=== PATIENT | male | born 1965 | race Caucasian/White ===

== ENCOUNTER 2021-10-25 08:18 | Inpatient (IN) ==
--- NOTE | 2021-09-30 11:42 | PAT Medication Instructions ---
Medication Instructions Date of Service September 30, 2021 Home Medications zyphlbq-wxsuvowsnpdgg-bjvywsot 250 mg-250 mg-65 mg tablet (Excedrin Migraine) 1 tab PO Q6H PRN Migraine Headache escitalopram oxalate 10 mg tablet (Lexapro) 20 mg PO QAM levothyroxine 137 mcg tablet 137 mcg PO QAM losartan 50 mg-hydrochlorothiazide 12.5 mg tablet 1 tab PO QAM rosuvastatin 20 mg tablet 20 mg PO QAM ASK your surgeon for instructions sqvoqxm-sdjmvmkskskpe-ifcuxhqj 250 mg-250 mg-65 mg tablet (Excedrin Migraine) 1 tab PO Q6H PRN Migraine Headache DO NOT take the morning of surgery losartan 50 mg-hydrochlorothiazide 12.5 mg tablet 1 tab PO QAM Take morning of surgery With a small sip of water, OTHERWISE NOTHING TO EAT OR DRINK AFTER MIDNIGHT: escitalopram oxalate 10 mg tablet (Lexapro) 20 mg PO QAM levothyroxine 137 mcg tablet 137 mcg PO QAM rosuvastatin 20 mg tablet 20 mg PO QAM Other Notes If you have any questions please call us at [phone] or [phone] or [phone] or [phone]
--- NOTE | 2021-10-04 11:12 | Anesthesiology Consultation ---
Date of Service October 04, 2021 Assessment & Plan (1) Encounter for pre-operative examination: - Patient acceptable risk for surgery pending surgeon-ordered cardiology preop evaluation (scheduled 10/16; [facility]). - COVID screening: Per assessment on 09/30: No known COVID-19 positive contacts or current COVID-19 related symptoms. Travel screen negative. Patient vaccinated. At surgeon discretion if preop Covid testing being done. - Possible difficult intubation: D/t anatomy and decreased cervical extension Chart Review Chart Review: Patient seen in Pre Admission Testing Teaching & Discussion Pre-Anesthesia Teaching/Discussion Notes: Instructed NPO after midnight before surgery,except medications with 15 cc of water. Medication instructions provided according to the PAT guidelines. History Surgery Operation Date: 10/25/21 07:45 Proposed Procedures p L4-L5 Decompression and Fusion, L5-S1 Hardware Removal, Spinal Cord Monitoring - Rohith Estevez, Height/Weight Height: 6 ft 2 in Weight: 120.2 kg Allergies Allergy/AdvReac Type Severity Reaction Status Date / Time No Known Allergies Allergy Verified 09/30/21 09:49 Medications Home Medications Medication Instructions Recorded Confirmed Last Taken vaewyqs-fsvzixsegnhvk-jnmkgkbs 250 1 tab PO Q6H PRN Migraine Headache 09/30/21 09/30/21 Unknown mg-250 mg-65 mg tablet (Excedrin Migraine) escitalopram oxalate 10 mg tablet 20 mg PO QAM 09/30/21 09/30/21 Unknown (Lexapro) levothyroxine 137 mcg tablet 137 mcg PO QAM 09/30/21 09/30/21 Unknown losartan 50 mg-hydrochlorothiazide 1 tab PO QAM 09/30/21 09/30/21 Unknown 12.5 mg tablet rosuvastatin 20 mg tablet 20 mg PO QAM 09/30/21 09/30/21 Unknown Past Medical History Medical History Anxiety Aortic stenosis Mild aortic stenosis (MG 17.0 mmhg) Depression History of COVID-19 01/2020 Hyperlipidemia Hypertension Hypothyroidism Migraine Severe sleep apnea Sleep study complete (plans for CPAP soon) Exercise / Class Metabolic Activity III < 4 Walking/Shop/Light housework (one FS (no CP, + SOB)) Past Family History Family History Other Adopted Past Surgical History Surgical History History of adenoidectomy History of appendectomy History of cholecystectomy History of colonoscopy History of esophagogastroduodenoscopy (EGD) History of lumbar fusion History of tonsillectomy History of tooth extraction Hx of surgical procedure laser spine procedure lumbar Past Anesthesia History No Hx of Anesthesia Complications and No Family Hx of Anesthesia Complications (Unknown- Adopted) History of PONV No Hx of PONV and Hx of Motion Sickness Social History Smoking Status: Never smoker Do You Dip or Chew Tobacco: No Hx Alcohol Use: No Hx Substance Use: No substance use type: does not use Review of Systems Patient denies chest pain, shortness of breath, fever, chills, cough, wheezing, palpitations. Physical Exam Vital Signs VITALS BP 130/79 P 60 TEMP 98.7 SP02 97%RA RESP 18 PHYSICAL Significantly decreased cervical extension range of motion. Full TMJ range of motion. TMD 4 finger breaths Mallampati Score 4 (small oral opening) Dentition: several missing including upper front Lungs: clear throughout to auscultation Cardiac: regular rate and rhythm, II-III/ systolic murmur Spine: normal Carotid arteries: negative bruit Extremities: no edema + adams- advised to trim Lab Results Anesthesia Preop Results Results Anesthesia Widget: WBC 6.00 K/ul (4.8-10.8) 10/04/21 Hgb 13.3 g/dl (14.0-18.0) L 10/04/21 Hct 39.9 % (40.1-51.0) L 10/04/21 Plt 216 K/uL (130-400) 10/04/21 Na 141 mmol/L (136-145) 10/04/21 K 3.7 mmol/L (3.5-5.1) 10/04/21 Cl 104 mmol/L (98-107) 10/04/21 CO2 31 mmol/L (21-32) 10/04/21 BUN 14 mg/dl (6-23) 10/04/21 Creat 0.81 mg/dl (0.6-1.4) 10/04/21 Glucose Level 68 mg/dl (70-99(Fasting)) L 10/04/21 PT 11.1 Seconds (9.0-12.0) 10/04/21 PTT 24.7 Seconds (21.0-31.0) 10/04/21 INR 1.0 (0.9-1.1) 10/04/21 Urine Color Yellow 10/04/21 Urine Appearance Clear (Clear) 10/04/21 Urine pH 5.5 (4.5-7.5) 10/04/21 Urine Specific [place] 1.017 (1.000-1.030) 10/04/21 Urine Protein Negative (Negative) 10/04/21 Urine Glucose (UA) Negative (Negative) 10/04/21 Urine Ketones Negative (Negative) 10/04/21 Urine Blood Negative (Negative) 10/04/21 Urine Nitrite Negative (Negative) 10/04/21 Urine Bilirubin Negative (Negative) 10/04/21 Urine Urobilinogen Negative (Negative) 10/04/21 Urine Leukocyte Esterase Negative (Negative) 10/04/21 Blood Type A Positive 10/04/21 Antibody Screen NEGATIVE 10/04/21 Testing Electrocardiogram Date: 06/07/21 SB at 46bpm. Possible lateral MO, probably old. Chest X-Ray Date: 10/04/21 Findings: + NAD Echocardiogram Date: 03/19/21 EF 60-65%. No regional motion abnormality. Mild LAD. Mildly calcified mitral valve annulus. Mild aortic stenosis (MG 17.0 mmhg). Stress Test Date: 06/07/21 Type: exercise Exercise stress EKG is not interpretable for ischemia as the patient only achieved 70% MPHR, the stress test had to be stopped on account of dyspnea. No chest pain reported. The patient, however has good functional status and exercised a maximum of 10 METS. Baseline artifact. There does not appear to be any significant STT segment changes. Infrequent PACs noted. Pulmonary Function Test Date: 06/01/21 Baseline spirometry normal. Patient was given increasing doses of methacholine with only 4% decrease in FVC and 9% decrease in FEV1. Negative methacholine challenge study. COVID-19 Risk Screen Screening Information COVID-19 Screen Date: 10/04/21 Exposure 21 Days Family/Household +COVID Last 21 Days: No Exposure 10 Days Any COVID Exposure Last 10 Days: No Symptoms Last 10 Days Experienced COVID Sx Last 10 Days: No + COVID 0-90 Days COVID + in Last 0-90 Days: No
[~2021-10-25 08:18] MED LIST: ACETAMINOPHEN 500 MG TAB PO SCH; ALBUMIN HUMAN 5% 12.5 GM/250 ML VIAL IV ONE; CeleBREX 200 MG CAP PO SCH; GABAPENTIN 600 MG DOSE PO SCH; LR 15ML/HR IV SCH; SUGAMMADEX SODIUM 200 MG/2 ML VIAL IV ONE
[2021-10-25] MEDS ORDERED: ONDANSETRON INJ 2 MG/ML 2 ML VIAL IV PRN ×2 (10:32→16:05)
[2021-10-25] MEDS ORDERED: HYDROmorphone INJ 2 MG/ML SYR/VIAL IV PRN (10:32)
[2021-10-25] MEDS ORDERED: ATROPINE SULFATE 0.1 MG/ML 10ML SYR IV PRN (10:32)
[2021-10-25] MEDS ORDERED: fentaNYL citrate 100 MCG/2 ML VIAL IV PRN (10:32)
[2021-10-25] MEDS ORDERED: ePHEDrine sulfate 50 MG/ML AMP IV PRN (10:32)
[2021-10-25] MEDS ORDERED: HYDROmorphone INJ 2 MG/ML SYR/VIAL ONE (10:33)
[2021-10-25] MEDS ORDERED: KETAMINE 50 MG/5 ML SYRINGE ONE (10:33)
[2021-10-25] MEDS ORDERED: MIDAZOLAM HCL 1 MG/ML 2ML VIAL ONE (10:33)
[2021-10-25] MEDS ORDERED: fentaNYL citrate 100 MCG/2 ML VIAL ONE (10:33)
[2021-10-25] MEDS ORDERED: LIDOCAINE 2% MPF LOCAL 5 ML VIAL INFIL ONE (10:34)
[2021-10-25] MEDS ORDERED: ONDANSETRON INJ 2 MG/ML 2 ML VIAL ONE (10:34)
[2021-10-25] MEDS ORDERED: PROPOFOL IV EMULSION 10 MG/ML 20 ML VIAL IV ONE (10:34)
[2021-10-25] MEDS ORDERED: DEXAMETHASONE SOD INJ 4 MG/ML VIAL ONE (10:34)
[2021-10-25] MEDS ORDERED: GLYCOPYRROLATE 0.2 MG/ML VIAL ONE (10:34)
[2021-10-25] MEDS ORDERED: ROCURONIUM BROMIDE 10 MG/ML 5 ML VIAL IV ONE ×2 (10:34→12:49)
--- NOTE | 2021-10-25 11:28 | History & Physical Bridge Note ---
Date of Service October 25, 2021 History & Physical Bridge Note I have examined the patient, reviewed the History & Physical and in the interval since the performance of the History & Physical I have noted the following changes of clinical significance: no changes noted
--- NOTE | 2021-10-25 11:29 | History & Physical Report ---
Date of Service October 25, 2021 Assessment & Plan (1) Neurogenic claudication due to lumbar spinal stenosis: Plan: L4-L5 decompression and fusion, L5-S1 hardware removal History of Present Illness Chief Complaint: Back and leg pain Primary Care Provider: German Aguirre MD This is a 56-year-old male who presents with marked kind status with consistent back and leg pain. I think since course of nonoperative care is here for surgical intervention. Allergies Allergy/AdvReac Type Severity Reaction Status Date / Time No Known Allergies Allergy Verified 10/25/21 09:14 Home Medications Medication Instructions Recorded Confirmed Type prxtymz-quvwirrqohoyv-rbqywuwt 250 1 tab PO Q6H PRN Migraine Headache 09/30/21 10/25/21 History mg-250 mg-65 mg tablet (Excedrin Migraine) escitalopram oxalate 10 mg tablet 20 mg PO QAM 09/30/21 10/25/21 History (Lexapro) levothyroxine 137 mcg tablet 137 mcg PO QAM 09/30/21 10/25/21 History losartan 50 mg-hydrochlorothiazide 1 tab PO QAM 09/30/21 10/25/21 History 12.5 mg tablet rosuvastatin 20 mg tablet 20 mg PO QAM 09/30/21 10/25/21 History Past Med/Surg History Medical History Anxiety Aortic stenosis Mild aortic stenosis (MG 17.0 mmhg) Depression History of COVID-19 01/2020 Hyperlipidemia Hypertension Hypothyroidism Migraine Severe sleep apnea Sleep study complete (plans for CPAP soon) Surgical History History of adenoidectomy History of appendectomy History of cholecystectomy History of colonoscopy History of esophagogastroduodenoscopy (EGD) History of lumbar fusion History of tonsillectomy History of tooth extraction Hx of surgical procedure laser spine procedure lumbar Family History Other Adopted Social History Smoking Status: Never smoker Second Hand Exposure: No; Do You Dip or Chew Tobacco: No; Tobacco Cessation Education Requested by Patient: No Hx Alcohol Use: No Hx Substance Use: No Preferred Language: Slovak Communication Ability: Effective Senior Abap Developer Required: No Beliefs That Will Affect Care: None Current Living Situation: Spouse Other Information That Helps Us Care for You: No Feels Safe at Home: Yes Safety Concerns: Feels Safe At This Time Assistive Devices: CPAP and Glasses Physical Exam Physical Exam: Patient is alert and oriented Heart regular rhythm Lungs clear Results & Data Results & Data ([facility]) Vital Signs (Past 12 Hours) Vital Signs Temp Pulse Resp BP Pulse Ox O2 Del Method 10/25/21 09:17 36.5 C 47 L 20 148/94 H 98 Room Air
[2021-10-25] MEDS ORDERED: BUPIVACAINE/EPINEPHRINE 0.25% 1:200,000 30 ML VIAL ONE (12:02)
[2021-10-25] MEDS ORDERED: ceFAZolin 330 MG/ML 1 GM VIAL ONE (12:02)
[2021-10-25] MEDS ORDERED: FLOSEAL HEMOSTATIC MATRIX 10ML TOP ONE (12:30)
[2021-10-25] MEDS ORDERED: PHENYLEPHRINE 100MCG/ML 5ML SYR ONE (12:51)
[2021-10-25] MEDS ORDERED: ePHEDrine sulfate 50 MG/ML SYR ONE (12:51)
--- NOTE | 2021-10-25 14:01 | Operative Report ---
Post Operative Report Pre & Post Diagnosis Operation Date: 10/25/21 10:25 Pre-Op Diagnosis: Spondylolisthesis Lumbar Region Post-Op Diagnosis: Spondylolisthesis Lumbar Region I identified the patient and participated in the time-out.: Yes Procedure Operation Date: 10/25/21 10:25 Actual Procedures #1 removal of posterior instrumentation L5-S1. #2 exploration of fusion L5-S1. #3 lumbar decompression bilateral medial facetectomies and foraminotomies L3-L4 L4-5 per #4 posterior spinal fusion L4-5. #5 placement posterior instrumentation L4-5. #6 interbody fusion L4-L5. #7 placement of Spira 14 x 26 mm cage at L4-5. #8 placement locally harvested morselized autograft in the posterior gutters. #9 placement I factor combined with V toss in the interbody space and posterior gutters. Surgeon Rohith Estevez DO Assistant Professor Of Communication None Estimated Blood Loss 250 Findings See Below Patient is 6 foot 2 weighing over 118 kg with a BMI of over 33. Patient's body habitus did contribute to significant technical difficulty requiring her deepest retractors longus instruments in order to perform his procedure. This at least 50% increased operative time. Specimens None Indications This is a 56-year-old male that presents with above-mentioned diagnosis after failed course of nonoperative care is here for the above-mentioned procedure. Description of Procedure Patient was met with identified informed consent obtained. Patient was then taken to the operative suite underwent a patient placed in a prone position on the [place] table top Tobias frame. All bony prominences well-padded eyes inspected to ensure no external pressure placed upon the. This point lumbar spine was prepped and draped in normal sterile fashion. Sharp dissection with the assistance pericardial was performed down to and exposing the lamina and transverse processes of L4 and instrumentation L5-S1 bilaterally. I then proceeded move the hardware bilaterally explore the fusion mass noting it to be mature and intact. Then performed a complete laminectomy of L4 partial laminectomy of L3 including bilateral medial facetectomies and foraminotomies addressing severe spinal stenosis. Obvious facet hypertrophy consistent with instability was identified. After complete decompression pedicle screws were placed in L4-L5 bilaterally with assistance of fluoroscopy and the properly sized lopez placed. By way of a transit foraminal approach on the left complete discectomy of L4-L5 was performed endplates curetted to subcortical bleeding bone and a 14 x 26 mm spiral cage with I factor tapped in position. The rods were then compressed locked into final position bilaterally. The transverse processes of L for L5 burred to subcortical bleeding bone. I factor combined with V toss and locally harvested morselized autograft was placed in the posterior gutters. 15 round TANIKA drain inserted. Incision was closed with 1 Vicryl the fascia 2-0 Vicryl subcutaneously and 4 Monocryl for final skin closure. Steri-Strip sterile dressings placed. Patient waken taken PACU stable condition. Please note spinal cord monitoring was utilized at the procedure no changes noted. I attest to the content of the Intraoperative Record and any orders documented therein. Any exceptions are noted below.
--- NOTE | 2021-10-25 14:08 | Fluoroscopy Report ---
FL lumbar spine 2-3V HISTORY: 56 years-old Male L4-5 DFI L5-S1 REMOVE HARDWARE COMPARISON: None TECHNIQUE: 2 spot fluoroscopic images of the lumbar spine were obtained utilizing 16.8 seconds fluoro scopy time FINDINGS: Discectomy at L4-L5 and L5-S1 with L4-L5 posterior interbody lopez and screw fusion. There appears to b e grade 1 anterolisthesis L4 on L5. No unexpected opaque foreign bodies identified. IMPRESSION: Fluoroscopic assistance as above. ACT 112: Negative or not required by law. The above report was generated using voice recognition software. It may contain grammatical, syntax o r spelling errors. Electronically signed by: Travis Hernandez M.D. 10/25/2021 2:07 PM
--- NOTE | 2021-10-25 15:44 | Anesthesiology Progress Note ---
Date of Service October 25, 2021 Anesthesia Post Procedure Vital Signs Vital Signs: Temp Pulse Pulse Resp BP Pulse Ox O2 Del Method 10/25/21 15:20 98.8 F 77 11 L 102/75 95 Oxymask 10/25/21 15:30 98.8 F 77 8 L 122/62 95 Nasal Cannula 10/25/21 15:10 98.8 F 89 10 L 117/70 97 Oxymask 10/25/21 15:00 78 10 L 98/78 L 96 Oxymask 10/25/21 14:50 75 10 L 115/84 95 Oxymask 10/25/21 14:40 77 10 L 113/95 95 Oxymask 10/25/21 14:30 73 10 L 102/72 93 Oxymask 10/25/21 14:20 71 12 118/77 95 Oxymask 10/25/21 14:10 98.6 F 68 16 120/68 94 Oxymask 10/25/21 09:17 97.7 F 47 L 20 148/94 H 98 Room Air O2 Flow Rate 10/25/21 15:20 3 10/25/21 15:30 2 10/25/21 15:10 5 10/25/21 15:00 9 10/25/21 14:50 9 10/25/21 14:40 9 10/25/21 14:30 9 10/25/21 14:20 9 10/25/21 14:10 9 10/25/21 09:17 Transfer of Care Handoff Completed per policy Notes Mental Status: alert / awake / arousable and participated in evaluation Patient Amnestic to Procedure: Yes Nausea / Vomiting: adequately controlled Pain: adequately controlled Airway Patency, RR, SpO2: stable & adequate BP & HR: stable & adequate Hydration State: stable & adequate Anesthetic Complications: no major complications apparent and Pt Satisfied with anesthetic care
[2021-10-25] MEDS ORDERED: diphenhydrAMINE Capsule 25 MG CAP PO PRN (16:05)
[2021-10-25] MEDS ORDERED: ACETAMINOPHEN 500 MG TAB PO PRN (16:05)
[2021-10-25] MEDS ORDERED: METOCLOPRAMIDE HCL INJ 5 MG/ML 2 ML VIAL IV PRN (16:05)
[2021-10-25] MEDS ORDERED: NON-FORMULARY MEDICATION (Aspirin-Acetaminophen-Caffeine [Excedrin Migraine] 250-250-65 mg PO PRN (16:05)
[2021-10-25] MEDS ORDERED: ACETAMINOPHEN 1,000 MG/100 ML VIAL IV PRN (16:05)
[2021-10-25] MEDS ORDERED: FAMOTIDINE 20 MG TAB PO PRN (16:05)
[2021-10-25] MEDS ORDERED: NALOXONE HCL 0.4 MG/1 ML VIAL/CARP IV PRN (16:05)
[2021-10-25] MEDS ORDERED: PROMETHAZINE HCL 12.5 MG in SODIUM CHLORIDE 0.9% 50 ML IV PRN (16:05)
[2021-10-25] MEDS ORDERED: bisacodyL 10 MG SUPP PR PRN (16:05)
[2021-10-25] MEDS ORDERED: LORazepam 0.5 MG TAB PO PRN (16:05)
[2021-10-25] MEDS ORDERED: SOD PHOSPHATE/SOD BIPHOSPHATE ENEMA 132 ML BTL PR PRN (16:05)
[2021-10-25] MEDS ORDERED: ALUMINUM/MAGNESIUM SUSP 30 ML UDC PO PRN (16:05)
[2021-10-25] MEDS ORDERED: HYDROmorphone INJ 0.5 MG/0.5 ML SYR IV PRN (16:05)
[2021-10-25] MEDS ORDERED: HYDROmorphone INJ 1 MG/ML SYRINGE IV PRN (16:05)
[2021-10-25] MEDS ORDERED: hydrOXYzine HCl 25 MG TAB PO PRN (16:05)
[2021-10-25] MEDS ORDERED: MAGNESIUM HYDROXIDE SUSP 30 ML UDC PO PRN (16:05)
[2021-10-25] MEDS ORDERED: ONDANSETRON 4 MG OD TAB PO PRN (16:05)
[2021-10-25] MEDS ORDERED: LORazepam 0.5 MG in SYRINGE 0.25 ML IV PRN (16:05)
--- NOTE | 2021-10-25 16:57 | Consultation ---
Date of Consultation October 25, 2021 Assessment & Plan (1) Neurogenic claudication due to lumbar spinal stenosis: (2) HTN (hypertension): (3) HLD (hyperlipidemia): (4) Hypothyroidism: (5) KIRBY (obstructive sleep apnea): (6) Aortic stenosis: Plan 56 y/o that underwent L4-L5 and L5-S1 with L4-L5 posterior interbody lopez and screw fusion performed by Dr. Estevez today after failed conservative management from back and leg pain. [facility] Hospitalist consulted for medical management. Neurogenic claudication d/t lumbar spinal stenosis: Discectomy at L4-L5 and L5-S1 with L4-L5 posterior interbody lopez and screw fusion performed by Dr. Estevez POD: #0 No Hgb in EMR system for review/baseline; Monitor H/H EBL: 250mL; ; TANIKA drain in place. Orthosx to manage pain control, wound care, anticoagulation and activities ISB post op PT/OT when appropriate; neurovascular checks per protocol AM labs; CBC/BMP HTN: Stable post op; continue losartan/HCTZ HLD: Stable; continue rosuvastatin Hypothyroidism: Stable; continue Synthroid Anxiety/Depression: Stable; continue Lexapro KIRBY: Stable; does not wear CPAP at home but is in process of obtaining one Aortic Stenosis: Mild; follows with in [place]; no previous records available. Disposition: PCP: Dr. Aguirre VTE Prophylaxis: SCD/TEDS Code Status: Full Code Contact: Kaci, : [phone] I personally was able to review all current laboratory work and diagnostic images obtained during this hospital stay. Additionally, I was able to review the patients past medication reconciliation and history with direct visualization in the patients chart. Patient seen in collaboration with Dr. Basilio. Supervising Physician Co-Signing Physician Notes Patient was seen and examined independently at bedside. Chart reviewed. Case discussed with Shae MOORE and agree with the documentation above with regards to HPI, physical exam and A/P except as noted below. In summary, this is a 56 year old male with spondylolisthesis lumbar region who underwent elective back surgery today by Dr Estevez. Seen and examined at bedside. at bedside. patient is AAO, sitting in bed, eating dinner, on NC. Chest clear, heart sounds normal, TANIKA drain with serosang output, abd benign, no edema. Complains of 7/10 lower back pain. No N/V/SOB. Diet, DVT ppx, pain medication and activities per primary team. Chronic medical conditions stable. Repeat labs in am. Rest as per the note above. History of Present Illness Requesting Physician: Dr. Estevez Reason for Consultation: Medical Management Attending Physician: Rohith Estevez DO History of Present Illness 56 y/o that underwent L4-L5 and L5-S1 with L4-L5 posterior interbody lopez and screw fusion performed by Dr. Estevez today after failed conservative management. Additional PMH includes: mild aortic stenosis, HTN, HLD, hypothyroidism, KIRBY, migraines, and anxiety. [facility] Hospitalist consulted for medical management. Please see A/P for further details. Allergies Allergy/AdvReac Type Severity Reaction Status Date / Time No Known Allergies Allergy Verified 10/25/21 09:14 Home Medications Medication Instructions Recorded Confirmed Type nyhmgjq-jvgizqtwltwwy-fhaanrop 250 1 tab PO Q6H PRN Migraine Headache 09/30/21 10/25/21 History mg-250 mg-65 mg tablet (Excedrin Migraine) escitalopram oxalate 10 mg tablet 20 mg PO QAM 09/30/21 10/25/21 History (Lexapro) levothyroxine 137 mcg tablet 137 mcg PO QAM 09/30/21 10/25/21 History losartan 50 mg-hydrochlorothiazide 1 tab PO QAM 09/30/21 10/25/21 History 12.5 mg tablet rosuvastatin 20 mg tablet 20 mg PO QAM 09/30/21 10/25/21 History Patient History Medical History (Updated 10/25/21 @ 16:45 by TRAVIS Le) Anxiety Aortic stenosis Mild aortic stenosis (MG 17.0 mmhg) Aortic stenosis Depression History of COVID-19 01/2020 HLD (hyperlipidemia) HTN (hypertension) Hyperlipidemia Hypertension Hypothyroidism Hypothyroidism Migraine KIRBY (obstructive sleep apnea) Severe sleep apnea Sleep study complete (plans for CPAP soon) Surgical History History of adenoidectomy History of appendectomy History of cholecystectomy History of colonoscopy History of esophagogastroduodenoscopy (EGD) History of lumbar fusion History of tonsillectomy History of tooth extraction Hx of surgical procedure laser spine procedure lumbar Family History Other Adopted Social History Smoking Status: Never smoker Second Hand Exposure: No; Do You Dip or Chew Tobacco: No; Tobacco Cessation Education Requested by Patient: No Hx Alcohol Use: No Hx Substance Use: No Preferred Language: Albanian Communication Ability: Effective Help Desk Specialist Required: No Beliefs That Will Affect Care: None Current Living Situation: Spouse Other Information That Helps Us Care for You: No Feels Safe at Home: Yes Safety Concerns: Feels Safe At This Time Assistive Devices: CPAP and Glasses Review of Systems Review of Systems: Neuro: (-) Falls, trauma, slurred speech HEENT: (-) ROSARIO, dizziness, dysphagia, visual or auditory changes CV: (-) CP, palpitations, swelling Resp: (-) SOB GI: (-) appetite changes, N/V/D, bowel changes : (-) urinary changes Skin: (-) rashes Psych: (-) anxiety, depression Physical Exam Physical Exam: Neuro: AAOx4, PERRLA, no aphagia, memory changes, CNII-XII grossly intact HEENT: head normocephalic, moist mucus membranes CV: S1/S2, (-) M/G/R, (-) edema, cap refill < 3 seconds Resp: Lungs CTA in all rivers. On RA GI: Abdomen S/NT/ND, Ax4 bowel sounds, (-) CVA tenderness Musculoskeletal: 5/5 B/L UE strength, 5/5 B/L LE strength. No gait disturbance Skin: (-) rashes , (-) erythema. Psych: euthymic mood Results & Data ([facility]) Vital Signs (Past 12 Hours) Vital Signs Temp Pulse Pulse Resp BP Pulse Ox O2 Del Method 10/25/21 16:12 Nasal Cannula 10/25/21 16:07 37.1 C 74 12 113/62 95 Nasal Cannula 10/25/21 15:20 37.1 C 77 11 L 102/75 95 Oxymask 10/25/21 15:50 37.1 C 79 11 L 128/62 95 Nasal Cannula 10/25/21 15:40 37.1 C 73 10 L 115/62 93 Nasal Cannula 10/25/21 15:30 37.1 C 77 8 L 122/62 95 Nasal Cannula 10/25/21 15:10 37.1 C 89 10 L 117/70 97 Oxymask 10/25/21 15:00 78 10 L 98/78 L 96 Oxymask 10/25/21 14:50 75 10 L 115/84 95 Oxymask 10/25/21 14:40 77 10 L 113/95 95 Oxymask 10/25/21 14:30 73 10 L 102/72 93 Oxymask 10/25/21 14:20 71 12 118/77 95 Oxymask 10/25/21 14:10 37.0 C 68 16 120/68 94 Oxymask 10/25/21 09:17 36.5 C 47 L 20 148/94 H 98 Room Air O2 Flow Rate 10/25/21 16:12 3 10/25/21 16:07 3 10/25/21 15:20 3 10/25/21 15:50 3 10/25/21 15:40 3 10/25/21 15:30 2 10/25/21 15:10 5 10/25/21 15:00 9 10/25/21 14:50 9 10/25/21 14:40 9 10/25/21 14:30 9 10/25/21 14:20 9 10/25/21 14:10 9 10/25/21 09:17 Diagnostic Findings Lumbar Spine X-Ray 10/25/21 10:25 [place] lumbar spine 2-3V HISTORY: 56 years-old Male L4-5 DFI L5-S1 REMOVE HARDWARE COMPARISON: None TECHNIQUE: 2 spot fluoroscopic images of the lumbar spine were obtained utilizing 16.8 seconds fluoroscopy time FINDINGS: Discectomy at L4-L5 and L5-S1 with L4-L5 posterior interbody lopez and screw fusion. There appears to be grade 1 anterolisthesis L4 on L5. No unexpected opaque foreign bodies identified. IMPRESSION: Fluoroscopic assistance as above. ACT 112: Negative or not required by law. The above report was generated using voice recognition software. It may contain grammatical, syntax or spelling errors. Electronically signed by: Travis Hernandez M.D. 10/25/2021 2:07 PM
[2021-10-25] MEDS: LACTATED RINGER'S 1,000 ML IV SCH ×2 (16:58→23:30)
[2021-10-25] MEDS: oxyCODONE HCL IR 5 MG TAB (IMMEDIATE RELEASE) PO PRN ×2 (17:52→23:18)
[2021-10-25] MEDS: ceFAZolin 2000MG 2,000 MG/15 ML SYR IV SCH (20:18)
[2021-10-25] MEDS: DOCUSATE SODIUM/SENNA 50/8.6MG TAB PO SCH (20:19)
[2021-10-25] MEDS: traMADol HCL 50 MG TABLET PO PRN (20:21)
[2021-10-26] MEDS: ceFAZolin 2000MG 2,000 MG/15 ML SYR IV SCH (04:36)
[2021-10-26] MEDS: POLYETHYLENE (MIRALAX) 17 GM PACK PO SCH ×4 (06:07→22:28)
[2021-10-26] MEDS: LEVOTHYROXINE SODIUM 137 MCG TABLET PO SCH (06:07)
[2021-10-26] MEDS: LACTATED RINGER'S 1,000 ML IV SCH (06:12)
[2021-10-26 06:56] LABS: BUN Creatinine Ratio 15.9 (10-20); Calcium 8.9 mg/dl (8.5-10.1); Creatinine Clr Calc Pharmacy 126.9 ml/min; Est GFR (African American) 110.5 ml/min; Est GFR (Non-African American) 95.4 ml/min; Potassium 4.3 mmol/L (3.5-5.1)
[2021-10-26] MEDS: traMADol HCL 50 MG TABLET PO PRN (07:18)
[2021-10-26] MEDS: ESCITALOPRAM OXALATE 20 MG TAB PO SCH (08:21)
[2021-10-26] MEDS: ROSUVASTATIN CALCIUM 20 MG TAB PO SCH (08:21)
[2021-10-26] MEDS: LOSARTAN/HCTZ 50/12.5MG TAB PO SCH (08:21)
[2021-10-26] MEDS: dexAMETHasone 6 MG in SYRINGE 0 ML IV SCH (08:22)
--- NOTE | 2021-10-26 08:30 | Orthopedic Progress Note ---
Date of Service October 26, 2021 Assessment & Plan (1) Neurogenic claudication due to lumbar spinal stenosis: Plan: Patient is postoperative day 1 status post hard removal L5-S1, decompression and fusion L4-5. He is doing well. He will start physical therapy today. DVT prophylaxis in the form of teds and SCDs. Continue with bowel regimen. Maintain TANIKA drain. Reinforce dressing. Anticipate discharge home within the next 24 to 48 hours. Admission and Anticipated Discharge Date Admission Date: October 25, 2021 Subjective Mr. Garvey is postoperative day 1 status post hardware removal L5-S1, decompression instrumented fusion L4-5. He is doing well. He had an uneventful evening. TANIKA drain output last shift was 80 cc. H&H not performed this morning. Lower extremity pain is greatly improved. Overall doing well. Review of Systems Review of Systems: All systems reviewed & are unremarkable except as noted in HPI & below Physical Exam Physical Exam: Sitting on the edge of the bed in no acute distress Alert and oriented x3 Lumbar dressing is bloodsoaked but has functioning TANIKA drain Strength is intact bilateral lower extremities Calf soft nontender bilaterally Results & Data ([facility]) Vital Signs (Past 12 Hours) Vital Signs Temp Pulse Pulse Resp BP Pulse Ox O2 Del Method 10/26/21 07:10 Room Air 10/26/21 07:09 36.5 C 65 16 117/67 96 Room Air 10/26/21 03:00 36.5 C 67 16 128/72 96 Room Air 10/25/21 23:12 36.6 C 80 16 118/69 96
[2021-10-26 08:47] LABS: Basophils # (auto) 0.01 K/uL (0-0.2); Basophils % (auto) 0.1 %; Hematocrit (blood only) 36.4 % (40.1-51.0); Hemoglobin 12.2 g/dl (14.0-18.0); Immature Granulocytes # (auto) 0.06 K/uL (0.00-0.02); Immature Granulocytes % (auto) 0.4 %; Lymphocytes # (auto) 1.08 K/uL (1.2-3.4); Lymphocytes % (auto) 7.8 %; Mean Corpuscular Hemoglobin 29.3 pg (25.0-34.0); Mean Corpuscular Hgb Conc 33.5 g/dL (32.0-36.0); Mean Corpuscular Volume 87.3 fL (80.0-100.0); Mean Platelet Volume 10.6 fL (9.4-12.4); Monocytes # (auto) 0.68 K/uL (0.24-0.82); Monocytes % (auto) 4.9 %; Neutrophils # (auto) 12.04 K/uL (1.4-6.5); Neutrophils % (auto) 86.8 %; Platelet Count 258 K/uL (130-400); RDW Coefficient of Variation 12.6 % (11.5-14.5); RDW Standard Deviation 39.8 fL (36.4-46.3); Red Blood Count 4.17 M/uL (4.63-6.08); White Blood Count 13.87 K/ul (4.8-10.8)
[2021-10-26] MEDS ORDERED: COUGH DROP (SUGAR FREE) LOZ 24 LOZ/1 BOX BUCCAL ONE (09:39)
[2021-10-26] MEDS: oxyCODONE HCL IR 5 MG TAB (IMMEDIATE RELEASE) PO PRN (12:08)
--- NOTE | 2021-10-26 14:24 | Hospitalist Progress Note ---
Date of Service October 26, 2021 Assessment & Plan (1) Neurogenic claudication due to lumbar spinal stenosis: (2) HTN (hypertension): (3) HLD (hyperlipidemia): (4) Hypothyroidism: (5) KIRBY (obstructive sleep apnea): (6) Aortic stenosis: Plan 56 y/o that underwent L4-L5 and L5-S1 with L4-L5 posterior interbody lopez and screw fusion performed by Dr. Estevez today after failed conservative management from back and leg pain. [facility] Hospitalist consulted for medical management. Neurogenic claudication d/t lumbar spinal stenosis: Discectomy at L4-L5 and L5-S1 with L4-L5 posterior interbody lopez and screw fusion performed by Dr. Estevez POD: #1 hgb 12.2 - ~80cc from TANIKA drain EBL: 250mL; ; TANIKA drain in place. Orthosx to manage pain control, wound care, anticoagulation and activities ISB post op PT/OT when appropriate; neurovascular checks per protocol HTN: Stable post op; continue losartan/HCTZ HLD: Stable; continue rosuvastatin Hypothyroidism: Stable; continue Synthroid Anxiety/Depression: Stable; continue Lexapro KIRBY: Stable; does not wear CPAP at home but is in process of obtaining one Aortic Stenosis: Mild; follows with in [place]; no previous records available. Disposition: PCP: Dr. Aguirre VTE Prophylaxis: SCD/TEDS Code Status: Full Code Contact: Kaci, : [phone] Admission and Anticipated Discharge Date Admission Date: October 25, 2021 Subjective Mr. Garvey is postoperative day 1 status post hardware removal L5-S1, decompression instrumented fusion L4-5. He is doing well, feels very good, pain is about 4/10. TAINKA drain output last shift was 80 cc. Lower extremity pain is greatly improved. Overall doing well. Review of Systems Review of Systems: All systems reviewed & are unremarkable except as noted in Subjective Physical Exam Physical Exam: Neuro: AAOx4, PERRLA, no aphagia, memory changes, CNII-XII grossly intact HEENT: head normocephalic, moist mucus membranes CV: S1/S2, (-) M/G/R, (-) edema, cap refill < 3 seconds Resp: Lungs CTA in all rivers. On RA GI: Abdomen S/NT/ND, Ax4 bowel sounds, (-) CVA tenderness Musculoskeletal: 5/5 B/L UE strength, 5/5 B/L LE strength. No gait disturbance Skin: (-) rashes , (-) erythema. Psych: euthymic mood Results & Data Results & Data ([facility]) Vital Signs (Past 12 Hours) Vital Signs Temp Pulse Pulse Resp BP Pulse Ox O2 Del Method 10/26/21 12:59 97 10/26/21 11:31 36.1 C L 64 18 120/68 94 Room Air 10/26/21 07:10 Room Air 10/26/21 07:09 36.5 C 65 16 117/67 96 Room Air 10/26/21 03:00 36.5 C 67 16 128/72 96 Room Air Laboratory Results Short CBC 10/26/21 10/26/21 Range/Units 05:12 08:07 WBC Cancelled 13.87 H Hgb Cancelled 12.2 L Hct Cancelled 36.4 L Plt Count Cancelled 258 BMP 10/26/21 05:12 Sodium 138 Potassium 4.3 Chloride 102 Carbon Dioxide 29 BUN 14 Creatinine 0.88 Glucose 111 H Calcium 8.9 Medications Administered Current Inpatient Medications Acetaminophen (Acetaminophen 500 Mg Tab) 1,000 mg PO Q8H PRN PRN Reason: MILD Pain Scale 1,2,3 & Pre PT Stop: 11/24/21 16:04 Al Hydrox/Mg Hydrox/Simethicone (Aluminum/Magnesium Susp 30 Ml Udc) 30 ml PO Q6H PRN PRN Reason: Dyspepsia Stop: 11/24/21 16:04 Bisacodyl (Bisacodyl 10 Mg Supp) 10 mg NJ DAILY PRN PRN Reason: Constipation Stop: 11/24/21 16:04 Diphenhydramine HCl (Diphenhydramine Capsule 25 Mg Cap) 25 mg PO Q6H PRN PRN Reason: Allergic Rhinitis/Insomnia Stop: 11/24/21 16:04 Escitalopram Oxalate (Escitalopram Oxalate 20 Mg Tab) 20 mg PO QAM ILANA Stop: 11/25/21 08:59 Last Admin: 10/26/21 08:21 Dose: 20 mg Famotidine (Famotidine 20 Mg Tab) 20 mg PO Q12H PRN PRN Reason: Dyspepsia Stop: 11/24/21 16:04 HCTZ/Losartan Potassium (Losartan/Hctz 50/12.5mg Tab) 1 tab PO QAM ILANA Stop: 11/25/21 08:59 Last Admin: 10/26/21 08:21 Dose: 1 tab Hydromorphone HCl (Hydromorphone Inj 0.5 Mg/0.5 Ml Syr) 0.5 mg IV Q3H PRN PRN Reason: MODERATE Pain (Scale 4,5,6) & Pre PT Stop: 11/08/21 16:04 Hydromorphone HCl (Hydromorphone Inj 1 Mg/Ml Syringe) 1 mg IV Q3H PRN PRN Reason: SEVERE Pain (Scale 7,8,9,10) Stop: 11/08/21 16:04 Hydroxyzine HCl (Hydroxyzine Hcl 25 Mg Tab) 25 mg PO Q8H PRN PRN Reason: Anxiety Stop: 11/24/21 16:04 Promethazine HCl 12.5 mg/ (Sodium Chloride) 50.5 mls @ 202 mls/hr IV Q6H PRN PRN Reason: Nausea &/or Vomiting Stop: 11/24/21 16:04 Acetaminophen (Ofirmev) 1,000 mg in 100 mls @ 400 mls/hr IV Q8H PRN PRN Reason: Pain Rating 1-3 & Pre PT Stop: 10/26/21 16:06 Lorazepam 0.5 mg/ Syringe 0.5 mls @ 2 mls/min IV Q8H PRN PRN Reason: Sedation/Anxiety Stop: 11/24/21 16:04 Dexamethasone 6 mg/ Syringe 1.5 mls @ 1 mls/min IV DAILY ILANA Stop: 10/28/21 09:02 Last Admin: 10/26/21 08:22 Dose: 1 mls/min Levothyroxine Sodium (Levothyroxine Sodium 137 Mcg Tablet) 137 mcg PO DAILYBB [facility] Stop: 11/25/21 06:29 Last Admin: 10/26/21 06:07 Dose: 137 mcg Lorazepam (Lorazepam 0.5 Mg Tab) 0.5 mg PO Q8H PRN PRN Reason: Sedation/Anxiety Stop: 11/24/21 16:04 Magnesium Hydroxide (Magnesium Hydroxide Susp 30 Ml Udc) 30 ml PO Q24H PRN PRN Reason: Constipation Stop: 11/24/21 16:04 Metoclopramide HCl (Metoclopramide Hcl Inj 5 Mg/Ml 2 Ml Vial) 10 mg IV Q6H PRN PRN Reason: Nausea &/or Vomiting Stop: 11/24/21 16:04 Naloxone HCl (Naloxone Hcl 0.4 Mg/1 Ml Vial/Carp) 0.1 mg IV Q5M PRN PRN Reason: Oversedation/Resp depression Stop: 11/24/21 16:04 Ondansetron HCl (Ondansetron Inj 2 Mg/Ml 2 Ml Vial) 4 mg IV Q6H PRN PRN Reason: Nausea &/or Vomiting Stop: 11/24/21 16:04 Ondansetron HCl (Ondansetron 4 Mg Od Tab) 4 mg PO Q6H PRN PRN Reason: Nausea Stop: 11/24/21 16:04 Oxycodone HCl (Oxycodone Hcl Ir 5 Mg Tab (Immediate Release)) 5 - 10 mg PO Q4H PRN PRN Reason: Pain & Pre PT Stop: 11/08/21 16:04 Last Admin: 10/26/21 12:08 Dose: 5 mg Polyethylene Glycol (Polyethylene (Miralax) 17 Gm Pack) 17 gm PO Q6 ILANA Stop: 11/25/21 05:59 Last Admin: 10/26/21 12:05 Dose: 17 gm Rosuvastatin Calcium (Rosuvastatin Calcium 20 Mg Tab) 20 mg PO QAM ILANA Stop: 11/25/21 08:59 Last Admin: 10/26/21 08:21 Dose: 20 mg Senna/Docusate Sodium (Docusate Sodium/Senna 50/8.6mg Tab) 2 tab PO HS ILANA Stop: 11/24/21 20:59 Last Admin: 10/25/21 20:19 Dose: 2 tab Sodium Biphosphate/Sodium Phosphate (Sod Phosphate/Sod Biphosphate Enema 132 Ml Btl) 132 ml NJ ONE PRN PRN Reason: Constipation Stop: 11/24/21 16:04 Tramadol HCl (Tramadol Hcl 50 Mg Tablet) 50 - 100 mg PO Q4H PRN PRN Reason: Moderate-Severe pain & Pre PT Stop: 11/24/21 16:04 Last Admin: 10/26/21 07:18 Dose: 50 mg
[2021-10-26] MEDS: DOCUSATE SODIUM/SENNA 50/8.6MG TAB PO SCH (20:00)
[2021-10-27] MEDS: POLYETHYLENE (MIRALAX) 17 GM PACK PO SCH (05:39)
[2021-10-27] MEDS: LEVOTHYROXINE SODIUM 137 MCG TABLET PO SCH (05:39)
[2021-10-27 05:43] LABS: Hematocrit (blood only) 37.1 % (40.1-51.0); Mean Corpuscular Hemoglobin 28.7 pg (25.0-34.0); Mean Corpuscular Hgb Conc 32.3 g/dL (32.0-36.0); Mean Corpuscular Volume 88.8 fL (80.0-100.0); Mean Platelet Volume 10.2 fL (9.4-12.4); Platelet Count 206 K/uL (130-400); RDW Coefficient of Variation 12.7 % (11.5-14.5); RDW Standard Deviation 41.1 fL (36.4-46.3); Red Blood Count 4.18 M/uL (4.63-6.08)
[2021-10-27] MEDS: LOSARTAN/HCTZ 50/12.5MG TAB PO SCH (08:10)
[2021-10-27] MEDS: ESCITALOPRAM OXALATE 20 MG TAB PO SCH (08:10)
[2021-10-27] MEDS: ROSUVASTATIN CALCIUM 20 MG TAB PO SCH (08:10)
--- NOTE | 2021-10-27 08:10 | Orthopedic Progress Note ---
Date of Service October 27, 2021 Assessment & Plan (1) Neurogenic claudication due to lumbar spinal stenosis: Plan: Patient is postop day 2 status post hard removal L5-S1, decompression fusion L4- 5. He is doing great. We will maintain TANIKA drain. DVT prophylaxis is in the form of teds and SCDs. Continue with pain control. Continue with physical therapy and ambulation. Will discharge home tomorrow. Admission and Anticipated Discharge Date Admission Date: October 25, 2021 Tonny Simeon is postoperative day 2 status post hard removal L5-S1, decompression fusion L4-5. He is doing great. Pain is controlled. He had a bowel movement. TANIKA drain output last shift was 65 cc. Yesterday in physical therapy ambling 250 feet. He is also ambling the hallways with the assistance of the walker. Review of Systems Review of Systems: All systems reviewed & are unremarkable except as noted in HPI & below Physical Exam Physical Exam: He sitting on the edge of the bed in no acute distress Lumbar dressing is reinforced with functioning TANIKA drain Calf soft nontender bilaterally Strength unchanged bilateral lower extremity
[2021-10-27] MEDS: dexAMETHasone 6 MG in SYRINGE 0 ML IV SCH (08:11)
--- NOTE | 2021-10-27 11:20 | Hospitalist Progress Note ---
Date of Service October 27, 2021 Assessment & Plan (1) Neurogenic claudication due to lumbar spinal stenosis: (2) HTN (hypertension): (3) HLD (hyperlipidemia): (4) Hypothyroidism: (5) KIRBY (obstructive sleep apnea): (6) Aortic stenosis: Plan 56 y/o that underwent L4-L5 and L5-S1 with L4-L5 posterior interbody lopez and screw fusion performed by Dr. Estevez today after failed conservative management from back and leg pain. [facility] Hospitalist consulted for medical management. Neurogenic claudication d/t lumbar spinal stenosis: Discectomy at L4-L5 and L5-S1 with L4-L5 posterior interbody lopez and screw fusion performed by Dr. Estevez POD: #1 hgb 12.2 - ~80cc from TANIKA drain EBL: 250mL; ; TANIKA drain in place. Orthosx to manage pain control, wound care, anticoagulation and activities ISB post op PT/OT when appropriate; neurovascular checks per protocol HTN: Stable post op; continue losartan/HCTZ HLD: Stable; continue rosuvastatin Hypothyroidism: Stable; continue Synthroid Anxiety/Depression: Stable; continue Lexapro KIRBY: Stable; does not wear CPAP at home but is in process of obtaining one Aortic Stenosis: Mild; follows with in [place]; no previous records available. Disposition: PCP: Dr. Aguirre VTE Prophylaxis: SCD/TEDS Code Status: Full Code Contact: Kaci, : [phone] Dispo: per primary team Admission and Anticipated Discharge Date Admission Date: October 25, 2021 Subjective Mr. Garvey is postoperative day 2 status post hardware removal L5-S1, decompression instrumented fusion L4-5. He is doing well, feels very good, pain is about 4/10. TANIKA drain still with output, will remain in place for another 24 hours. Lower extremity pain is greatly improved. Overall doing well. Was working with PT at time of exam, feeling good. Review of Systems Review of Systems: Neuro: (-) Falls, trauma, slurred speech HEENT: (-) ROSARIO, dizziness, dysphagia, visual or auditory changes CV: (-) CP, palpitations, swelling Resp: (-) SOB GI: (-) appetite changes, N/V/D, bowel changes : (-) urinary changes Skin: (-) rashes Psych: (-) anxiety, depression Physical Exam Physical Exam: Neuro: AAOx4, PERRLA, no aphagia, memory changes, CNII-XII grossly intact HEENT: head normocephalic, moist mucus membranes CV: S1/S2, (-) M/G/R, (-) edema, cap refill < 3 seconds Resp: Lungs CTA in all rivers. On RA GI: Abdomen S/NT/ND, Ax4 bowel sounds, (-) CVA tenderness Musculoskeletal: 5/5 B/L UE strength, 5/5 B/L LE strength. No gait disturbance. TANIKA drain with blood Skin: (-) rashes , (-) erythema. Psych: euthymic mood Results & Data Results & Data ([facility]) Vital Signs (Past 12 Hours) Vital Signs Temp Pulse Resp BP Pulse Ox O2 Del Method 10/27/21 09:16 63 10/27/21 08:22 36.9 C 52 L 16 130/78 98 Room Air Laboratory Results Short CBC 10/27/21 Range/Units 05:33 WBC 13.20 H (4.8-10.8) K/ul Hgb 12.0 L (14.0-18.0) g/dl Hct 37.1 L (40.1-51.0) % Plt Count 206 (130-400) K/uL Diagnostic Findings reviewed Medications Administered Current Inpatient Medications Acetaminophen (Acetaminophen 500 Mg Tab) 1,000 mg PO Q8H PRN PRN Reason: MILD Pain Scale 1,2,3 & Pre PT Stop: 11/24/21 16:04 Al Hydrox/Mg Hydrox/Simethicone (Aluminum/Magnesium Susp 30 Ml Udc) 30 ml PO Q6H PRN PRN Reason: Dyspepsia Stop: 11/24/21 16:04 Bisacodyl (Bisacodyl 10 Mg Supp) 10 mg MD DAILY PRN PRN Reason: Constipation Stop: 11/24/21 16:04 Diphenhydramine HCl (Diphenhydramine Capsule 25 Mg Cap) 25 mg PO Q6H PRN PRN Reason: Allergic Rhinitis/Insomnia Stop: 11/24/21 16:04 Escitalopram Oxalate (Escitalopram Oxalate 20 Mg Tab) 20 mg PO QAM ILANA Stop: 11/25/21 08:59 Last Admin: 10/27/21 08:10 Dose: 20 mg Famotidine (Famotidine 20 Mg Tab) 20 mg PO Q12H PRN PRN Reason: Dyspepsia Stop: 11/24/21 16:04 Last Admin: 10/26/21 14:44 Dose: 20 mg HCTZ/Losartan Potassium (Losartan/Hctz 50/12.5mg Tab) 1 tab PO QAM ILANA Stop: 11/25/21 08:59 Last Admin: 10/27/21 08:10 Dose: 1 tab Hydromorphone HCl (Hydromorphone Inj 0.5 Mg/0.5 Ml Syr) 0.5 mg IV Q3H PRN PRN Reason: MODERATE Pain (Scale 4,5,6) & Pre PT Stop: 11/08/21 16:04 Hydromorphone HCl (Hydromorphone Inj 1 Mg/Ml Syringe) 1 mg IV Q3H PRN PRN Reason: SEVERE Pain (Scale 7,8,9,10) Stop: 11/08/21 16:04 Hydroxyzine HCl (Hydroxyzine Hcl 25 Mg Tab) 25 mg PO Q8H PRN PRN Reason: Anxiety Stop: 11/24/21 16:04 Promethazine HCl 12.5 mg/ (Sodium Chloride) 50.5 mls @ 202 mls/hr IV Q6H PRN PRN Reason: Nausea &/or Vomiting Stop: 11/24/21 16:04 Lorazepam 0.5 mg/ Syringe 0.5 mls @ 2 mls/min IV Q8H PRN PRN Reason: Sedation/Anxiety Stop: 11/24/21 16:04 Dexamethasone 6 mg/ Syringe 1.5 mls @ 1 mls/min IV DAILY ILANA Stop: 10/28/21 09:02 Last Admin: 10/27/21 08:11 Dose: 1 mls/min Levothyroxine Sodium (Levothyroxine Sodium 137 Mcg Tablet) 137 mcg PO DAILYBB [facility] Stop: 11/25/21 06:29 Last Admin: 10/27/21 05:39 Dose: 137 mcg Lorazepam (Lorazepam 0.5 Mg Tab) 0.5 mg PO Q8H PRN PRN Reason: Sedation/Anxiety Stop: 11/24/21 16:04 Magnesium Hydroxide (Magnesium Hydroxide Susp 30 Ml Udc) 30 ml PO Q24H PRN PRN Reason: Constipation Stop: 11/24/21 16:04 Metoclopramide HCl (Metoclopramide Hcl Inj 5 Mg/Ml 2 Ml Vial) 10 mg IV Q6H PRN PRN Reason: Nausea &/or Vomiting Stop: 11/24/21 16:04 Naloxone HCl (Naloxone Hcl 0.4 Mg/1 Ml Vial/Carp) 0.1 mg IV Q5M PRN PRN Reason: Oversedation/Resp depression Stop: 11/24/21 16:04 Ondansetron HCl (Ondansetron Inj 2 Mg/Ml 2 Ml Vial) 4 mg IV Q6H PRN PRN Reason: Nausea &/or Vomiting Stop: 11/24/21 16:04 Ondansetron HCl (Ondansetron 4 Mg Od Tab) 4 mg PO Q6H PRN PRN Reason: Nausea Stop: 11/24/21 16:04 Oxycodone HCl (Oxycodone Hcl Ir 5 Mg Tab (Immediate Release)) 5 - 10 mg PO Q4H PRN PRN Reason: Pain & Pre PT Stop: 11/08/21 16:04 Last Admin: 10/26/21 12:08 Dose: 5 mg Rosuvastatin Calcium (Rosuvastatin Calcium 20 Mg Tab) 20 mg PO QAM [facility] Stop: 11/25/21 08:59 Last Admin: 10/27/21 08:10 Dose: 20 mg Senna/Docusate Sodium (Docusate Sodium/Senna 50/8.6mg Tab) 2 tab PO HS [facility] Stop: 11/24/21 20:59 Last Admin: 10/26/21 20:00 Dose: 2 tab Sodium Biphosphate/Sodium Phosphate (Sod Phosphate/Sod Biphosphate Enema 132 Ml Btl) 132 ml MD ONE PRN PRN Reason: Constipation Stop: 11/24/21 16:04 Tramadol HCl (Tramadol Hcl 50 Mg Tablet) 50 - 100 mg PO Q4H PRN PRN Reason: Moderate-Severe pain & Pre PT Stop: 11/24/21 16:04 Last Admin: 10/26/21 07:18 Dose: 50 mg
[2021-10-27] MEDS: DOCUSATE SODIUM/SENNA 50/8.6MG TAB PO SCH (19:44)
[2021-10-28] MEDS: LEVOTHYROXINE SODIUM 137 MCG TABLET PO SCH (06:11)
[2021-10-28] MEDS: LOSARTAN/HCTZ 50/12.5MG TAB PO SCH (07:53)
[2021-10-28] MEDS: dexAMETHasone 6 MG in SYRINGE 0 ML IV SCH (07:53)
[2021-10-28] MEDS: ESCITALOPRAM OXALATE 20 MG TAB PO SCH (07:53)
[2021-10-28] MEDS: ROSUVASTATIN CALCIUM 20 MG TAB PO SCH (07:53)
--- NOTE | 2021-10-28 09:54 | Discharge Summary ---
Date of Service October 28, 2021 Admission HPI Per Admitting Provider This is a 56-year-old male who presents with marked kind status with consistent back and leg pain. I think since course of nonoperative care is here for surgical intervention. Principal Diagnosis Lumbar spinal stenosis with neurogenic claudication Discharge Data Allergies Allergy/AdvReac Type Severity Reaction Status Date / Time No Known Allergies Allergy Verified 10/25/21 09:14 Consultations 10/25/21 16:05 Consult Hospitalist Routine Procedures Performed Operation Date: 10/25/21 10:25 Actual Procedures p L4-L5 Decompression and Fusion, Spinal Cord Monitoring(Not Applicable) - Rohith Estevez DO s L5-S1 Hardware Removal(Not Applicable) - Rohith Estevez DO Ordered Studies 10/25/21 10:25 FL lumbar spine 2-3V Routine Hospital Course (1) Neurogenic claudication due to lumbar spinal stenosis: Patient underwent lumbar decompression fusion tolerated this well was taken to orthopedic for postoperative process postop day #1 is up and ambulating progress postop day 2 on postop day #3 excellent strength testing TANIKA drain decreased appropriately. Pain well controlled. Subsequent discharge home. Discharge orders instructions from the chart for further view. Total Time Total Time Spent Total Time Spent (In Minutes): 20 minutes Discharge Plan Discharge Items Patient Disposition: Home - Self-Care Reason For Visit: Spondylolisthesis, lumbar region (M43.16) Discharge Diagnosis: Lumbar spinal stenosis with neurogenic claudication Activity: As commented below Non-emergency contact: Primary Care Provider Call non-emergency contact if: you have any medication questions Follow-up/Referrals: German Aguirre MD [Primary Care Provider] - Diet: Regular Addtl Attending Provider Instructions: ACTIVITY RECOMMENDATIONS: SELF CARE INSTRUCTIONS AFTER THORACIC/LUMBAR FUSIONS 1. You may walk to your tolerance. It is good exercise for your legs and back. Expect some back and intermittent leg aches and pains. 2. You may perform "counter-top" level activities (make a sandwich, mynor with a project, etc.). 3. No bending or lifting of more than 10 pounds or back twisting of any nature (roll like a log when turning in bed). 4. You may ride in a car for 20-30 minutes at a time. No driving until after your first visit with your doctor. 5. Frequent changes of position and restricting sitting to 30 minutes at a time will help limit the amount of back spasms and stiffness you may experience. 6. You may discontinue the use of ambulatory aids (cane, crutches, etc.) once your strength and confidence allow. 7. You may geothermal operating engineer the shower and let water strike your incision when you arrive home at least once daily. Do not take a tub bath, sit in a hot tub or go into a swimming pool until after your first recheck in the office. SPECIAL CARE INSTRUCTIONS: VERY IMPORTANT TO READ AND REVIEW A. Your surgical incision has been closed with a cosmetic suture under the skin that will dissolve in about 6 weeks. In 14 days, you can use a pair of clean scissors and cut the suture that is left outside of the skin at the ends of your incision. 1. The small skin tapes can be removed 7 days after surgery if they have not fallen off by that point. 2. You may keep the wound open to air as much as possible to promote healing after post-op day number 5 unless told otherwise by your doctor. 3. If you think the wound looks like it is becoming infected (redness or worsening drainage) and/or you are experiencing fever, chill or worsening back pain and muscle spasms, contact the office so that we may evaluate you as soon as possible. B. Complications are uncommon, but please contact us if you have any signs or symptoms of: 1. wound infection (fever higher than 102.5 degrees F, redness, separation of wound, drainage, or increasing pain from the incision) 2. blood clots in legs (pain, swelling, redness and warmth in legs) 3. urinary tract infection (fever higher than 102.5 degrees F, burning upon urination or increased frequency of urination) 4. nerve problems (inability to walk on your toes or heels, numbness, loss of bowel or bladder control) 5. any other symptoms that concern you C. Please call the office at if you have any concerns or questions about your operation or recovery. D. No smoking! Smoking drastically decreases the chance of a solid fusion. E. Do not take any anti-inflammatory medications (Indocin, Advil, Motrin, Aspirin, Naprosyn, etc.) as these may inhibit the chance of a solid fusion. Tylenol is okay to take for pain. MANAGING PAIN AFTER SPINAL SURGERY 1. Narcotic medication is intended for short-term use and will be provided for surgical pain. Surgical pain usually lasts for a period of 4-6 weeks. Narcotic medication includes Percocet, Vicodin, Darvocet, Tylenol #3 or Lortab. 2. Longer-term pain is more appropriately treated with non-narcotic medication such as Tylenol ES. 3. Muscle spasm is not appropriately treated with narcotics. Muscle relaxers such as Soma, Flexeril or Skelaxin can be used along with Tylenol ES. 4. Remember that we all live with some "aches and pains". This is not unusual or uncommon after an injury or as we get older. a. Back pain is expected and may include muscle spasms for 4 to 6 weeks after surgery. The pain should gradually improve. If the pain worsens for no apparent reason, please contact the office. b. Intermittent leg pain may also be experienced and should not be concerned about unless it worsens for no apparent reason. If so, please contact the office. 5. We will provide appropriate medication within the normal guidelines of their prescribed use. We will also be very cautious and aware of potential abuse and extended duration of patients' medication needs. a. Pain medications are for your comfort and to assist with sleep and rest so that the tissue can heal. They are not provided in order to return to normal activity and should not be used through the day. To do so or worsening pain at night can result from ongoing tissue damage and development of tolerance to the prescribed medicine. 6. Please allow 2-3 days to process refills. Prescriptions will not be mailed but must be picked up at the office. FOLLOW UP VISIT: Keep your scheduled follow-up appointment. Any questions, please call the office at . Pending Studies at Discharge: No Stand-Alone Forms: My [employer], Smoking Cessation Medications and DC Order Prescriptions: New tramadol 50 mg tablet 50 mg PO Q6H PRN (Reason: pain, moderate) Qty: 30 0RF oxycodone 5 mg tablet 5 mg PO Q6H PRN (Reason: pain, severe) Qty: 30 0RF Continued escitalopram oxalate [Lexapro] 10 mg Tablet 20 mg PO QAM levothyroxine 137 mcg Tablet 137 mcg PO QAM losartan-hydrochlorothiazide 50-12.5 mg Tablet 1 tab PO QAM Excedrin Migraine 250-250-65 mg Tablet 1 tab PO Q6H PRN (Reason: Migraine Headache) rosuvastatin 20 mg Tablet 20 mg PO QAM Discharge Orders: Discharge Order (Routine); Ordered 10/28/21 Ordered By: Rohith Estevez Admission Data Admit Date/Time: 10/25/21 14:05 Attending Provider: Rohith Estevez Admit Provider: Rohith Estevez Primary Care Provider: German Aguirre Other Providers: Víctor Basilio Rishikesh
[2021-10-28] MEDS: oxyCODONE HCL IR 5 MG TAB (IMMEDIATE RELEASE) PO PRN (10:47)
--- NOTE | 2021-10-28 15:34 | Hospitalist Progress Note ---
Date of Service October 28, 2021 Assessment & Plan (1) Neurogenic claudication due to lumbar spinal stenosis: (2) HTN (hypertension): (3) HLD (hyperlipidemia): (4) Hypothyroidism: (5) KIRBY (obstructive sleep apnea): (6) Aortic stenosis: Plan 56 y/o that underwent L4-L5 and L5-S1 with L4-L5 posterior interbody lopez and screw fusion performed by Dr. Estevez today after failed conservative management from back and leg pain. [facility] Hospitalist consulted for medical management. Neurogenic claudication d/t lumbar spinal stenosis: Discectomy at L4-L5 and L5-S1 with L4-L5 posterior interbody lopez and screw fusion performed by Dr. Estevez POD: #3 hgb 12.0 EBL: 250mL;clean dressing at lower back w/o soakage. Orthosx to manage pain control, wound care, anticoagulation and activities PT/OT when appropriate - working w/ PT/OT ok. HTN: Stable post op; continue losartan/HCTZ HLD: Stable; continue rosuvastatin Hypothyroidism: Stable; continue Synthroid Anxiety/Depression: Stable; continue Lexapro KIRBY: Stable; does not wear CPAP at home but is in process of obtaining one Aortic Stenosis: Mild; follows with in [place]; no previous records available. Disposition: PCP: Dr. Aguirre VTE Prophylaxis: SCD/TEDS Code Status: Full Code Contact: Kaci, : [phone] Dispo: per primary team, DC'd today. Admission and Anticipated Discharge Date Admission Date: October 25, 2021 Subjective Mr. Garvey is postoperative day 3 status post hardware removal L5-S1, decompression instrumented fusion L4-5. He is doing well, feels very good, pain is about 3/10. TANIKA drain taken out, clean dressing at lower back w/o soakage. Lower extremity pain is greatly improved. Overall doing well. Reports eating ok and moving around ok. Physical Exam Physical Exam: GENERAL: Alert and oriented x3. NAD, on RA. /class I obese. HEENT: No pallor, no icterus. Pupils equal, round and reactive to light. Oral mucosa moist. NECK: No JVD, no neck masses. HEART: S1 and S2 heard. Regular rate and rhythm. No murmur, no gallop. RESPIRATORY SYSTEM: Normal AP diameter. No accessory muscle use. No wheezing, no crackles. ABDOMEN: Soft, bowel sounds present, nontender, no distention. CENTRAL NERVOUS SYSTEM: No facial droop. Speech is clear. Obeys simple commands. Moves extremities. EXTREMITIES: No edema, no erythema seen. Lower back w/ clean dressing w/o soakage. Results & Data Results & Data ([facility]) Vital Signs (Past 12 Hours) Vital Signs Temp Pulse Pulse Resp BP Pulse Ox O2 Del Method 10/28/21 11:02 36.9 C 57 L 58 L 16 155/89 H 99 10/28/21 08:23 36.9 C 58 L 16 155/89 H 99 Room Air
== END 2021-10-28 13:07 | disposition home or self-care (01) | DRG 455 ==
LOC: ASU 08:18 → 3E 14:05

== ENCOUNTER 2024-03-23 10:23 | Inpatient (IN) ==
--- NOTE | 2024-02-23 12:36 | PAT Medication Instructions ---
Medication Instructions Date of Service February 23, 2024 Home Medications nykbdjm-cbjuboevngnkz-hrhxumfk 250 mg-250 mg-65 mg tablet (Excedrin Migraine) 1 tab PO Q6H PRN Migraine Headache escitalopram oxalate 10 mg tablet (Lexapro) 20 mg PO QAM levothyroxine 137 mcg tablet 137 mcg PO QAM losartan 50 mg-hydrochlorothiazide 12.5 mg tablet 1 tab PO QAM rosuvastatin 20 mg tablet 20 mg PO QAM furosemide 20 mg tablet 20 mg PO QAM ASK your surgeon for instructions tkazhpp-xqattkgnunmsu-xtrukvcl 250 mg-250 mg-65 mg tablet (Excedrin Migraine) 1 tab PO Q6H PRN Migraine Headache DO NOT take the morning of surgery losartan 50 mg-hydrochlorothiazide 12.5 mg tablet 1 tab PO QAM furosemide 20 mg tablet 20 mg PO QAM Take morning of surgery With a small sip of water, OTHERWISE NOTHING TO EAT OR DRINK AFTER MIDNIGHT: escitalopram oxalate 10 mg tablet (Lexapro) 20 mg PO QAM levothyroxine 137 mcg tablet 137 mcg PO QAM rosuvastatin 20 mg tablet 20 mg PO QAM Other Notes If you have any questions please call us at [phone] or [phone] or [phone] or [phone]
--- NOTE | 2024-03-02 11:37 | Anesthesiology Consultation ---
Date of Service March 02, 2024 Assessment & Plan (1) Encounter for pre-operative examination: - abnormal CXR: patient asymptomatic as above. Multiple calls made to listed PCP office number without answer both 03/02/24 and 03/03/24. Calls made to patient without response/voicemail is not yet set up. CXR report to be faxed to PCP by PAT secretary [employer]. I was able to reach PCP office on third call, Linnea with PCP office was made aware of abnormal CXR, stated they did receive the report and advised PCP was out of office until next week but was available to be contacted by their office if needed. Dr. Rivera advised PCP should be called by his office to review CXR today. Linnea with Dr. Aguirre's office was made aware and advised PCP would be notified today. I also reached patient who states that he has been having sinus drainage; denies cough, chest discomfort, change in shortness or breath, fever or chills. He was made aware of abnormal CXR report and need to remain in communication with PCP, I advised he set up voicemail box. He verbalized understanding, denied questions or concerns. - surgeon ordered PCP pre-operative evaluation 03/08/24, Dr. German Aguirre. PAT testing to be faxed to PCP. - cardiology office visit 12/30/23: "...aortic valve disease...mild ...will repeat echo in 18 months...intermittent trace to 1+ lower extremity edema...as needed Lasix..." - facial hair: patient was advised on trimming/shaving facial hair. Chart Review Chart Review: Pending: Refer to Additional Notes / Consult section and Patient seen in Pre Admission Testing Teaching & Discussion Pre-Anesthesia Teaching/Discussion Notes: Instructed NPO after midnight before surgery, except medications with 15 cc of water. Medication instructions provided according to the PAT guidelines. History Surgery Operation Date: 03/23/24 10:05 Proposed Procedures p L3 to L4 Decompression and Fusion L4 to L5 Hardware Removal Spinal Cord Monitoring - Rohith Estevez DO Height/Weight Height: 6 ft 2 in Weight: 129.4 kg Allergies Allergy/AdvReac Type Severity Reaction Status Date / Time No Known Allergies Allergy Verified 02/18/24 14:30 Medications Home Medications Medication Instructions Recorded Confirmed Last Taken muhcadi-alncovipnbzej-jhpsqsuq 250 1 tab PO Q6H PRN Migraine Headache 09/30/21 02/18/24 10/18/21 mg-250 mg-65 mg tablet (Excedrin Migraine) escitalopram oxalate 10 mg tablet 20 mg PO QAM 09/30/21 02/18/24 10/25/21 06:00 (Lexapro) levothyroxine 137 mcg tablet 137 mcg PO QAM 09/30/21 02/18/24 10/25/21 06:00 losartan 50 mg-hydrochlorothiazide 1 tab PO QAM 09/30/21 02/18/24 10/24/21 08:00 12.5 mg tablet rosuvastatin 20 mg tablet 20 mg PO QAM 09/30/21 02/18/24 10/25/21 06:00 furosemide 20 mg tablet 20 mg PO QAM 02/18/24 02/18/24 Unknown Past Medical History Medical History (Updated 03/02/24 @ 16:21 by Massiel Martínez PA-C) Anxiety Aortic stenosis Mild aortic stenosis (MG 17.0 mmHg) Asthma exercise induced, stable-denies inhalers Atrial fibrillation no meds, follows with Dr Rodrigez, [facility] Depression GERD (gastroesophageal reflux disease) controlled, stable per pt History of COVID-19 (~2019) 01/2020-denies hospitalization-residual symptoms-mild memory changes Hyperlipidemia Hypertension controlled, stable per pt Hypothyroidism Migraine Severe sleep apnea CPAP-compliant Sick sinus syndrome per cardiology records: 06/07/21. ETT, sub max HR 69% Afib is not listed in cardiology note. Patient denies h/o stroke, seizures, heart attack, heart failure, DM, blood clots/DVTs or blood transfusions. Exercise / Class Metabolic Activity II 4-5 Yardwork/Stairs/Walk up hill (shortness of breath walking up one flight of stairs ongoing over the past year-denies change or worsening-notes correlation to weight gain; denies chest discomfort) Past Family History Family History Other Adopted Past Surgical History Surgical History (Updated 03/02/24 @ 12:17 by Massiel Martínez PA-C) History of adenoidectomy History of appendectomy History of cholecystectomy History of colonoscopy History of esophagogastroduodenoscopy (EGD) History of lumbar fusion x 2, L4 L5 S1 History of shoulder surgery right-rotator cuff x 2 History of tonsillectomy History of tooth extraction Hx of surgical procedure laser spine procedure lumbar Past Anesthesia History No Hx of Anesthesia Complications History of PONV No Hx of PONV and Hx of Motion Sickness Social History Smoking Status: Never smoker Do You Dip or Chew Tobacco: No Hx Alcohol Use: No Hx Substance Use: No substance use type: does not use Review of Systems Patient denies chest pain, fever, chills, cough, wheezing, or palpitations. Physical Exam Vital Signs Vitals BP 121/68 P 76 TEMP 98.1 SP02 96% on RA RESP 19 Physical Patient resting comfortably in chair in no acute distress, alert and oriented, responding appropriately throughout visit Full cervical extension range of motion without pain TMD 3.5 finger breadths Mallampati Score 3 Dentition: full upper denture; denies chipped or loose teeth, caps/crowns, implants or bridges Lungs: normal respiratory effort. Good air movement, clear throughout to auscultation, no adventitious breath sounds Cardiac: regular rate and rhythm, 2/6 systolic murmur, no gallops or rubs Carotid arteries: negative bruit bilat Lab Results Anesthesia Preop Results Results Anesthesia Widget: WBC 6.04 K/ul (4.8-10.8) 03/02/24 Hgb 13.3 g/dl (14.0-18.0) L 03/02/24 Hct 39.0 % (42.0-52.0) L 03/02/24 Plt 230 K/uL (130-400) 03/02/24 Na 140 mmol/L (136-145) 03/02/24 K 3.6 mmol/L (3.5-5.1) 03/02/24 Cl 102 mmol/L (98-107) 03/02/24 CO2 34 mmol/L (21-32) H 03/02/24 BUN 11 mg/dl (6-23) 03/02/24 Creat 0.84 mg/dl (0.6-1.4) 03/02/24 Glucose Level 127 mg/dl (70-99(Fasting)) H 03/02/24 PT 11.1 Seconds (9.0-12.0) 03/02/24 PTT 25 Seconds (21-31) 03/02/24 INR 1.0 (0.9-1.1) 03/02/24 Urine Color Yellow 03/02/24 Urine Appearance Clear (Clear) 03/02/24 Urine pH 6.0 (4.5-7.5) 03/02/24 Urine Specific Malcolm 1.009 (1.000-1.030) 03/02/24 Urine Protein Negative (Negative) 03/02/24 Urine Glucose (UA) Negative (Negative) 03/02/24 Urine Ketones Negative (Negative) 03/02/24 Urine Blood Negative (Negative) 03/02/24 Urine Nitrite Negative (Negative) 03/02/24 Urine Bilirubin Negative (Negative) 03/02/24 Urine Urobilinogen Negative (Negative) 03/02/24 Urine Leukocyte Esterase Negative (Negative) 03/02/24 Blood Type A Positive 03/02/24 Antibody Screen NEGATIVE 03/02/24 Testing Electrocardiogram Date: 08/15/23 Sinus rhythm, rate 62 bpm Left axis deviation LVH and ST-T change Possible lateral UT of indeterminate age Chest X-Ray Date: 03/02/24 Peribronchial thickening is seen compatible with infectious/inflammatory airways disease or viral pneumonia. No alta consolidation is seen. Echocardiogram Date: 03/19/21 EF 60-65% Normal wall motion Mildly dilated LA Mildly calcified mitral valve Mildly calcified aortic valve Stress Test Date: 10/08/21 Type: exercise MPHR 69% "Not interpretable EKG for ischemia as the patient achieved only 70% of MPHR...had to be stopped on account of dyspnea" METS 10 Resting EKG reveals a sinus bradycardia, infrequent PACs
[2024-03-23] MEDS: LR 60ML/HR IV SCH (11:05)
[2024-03-23] MEDS: CeleBREX 200 MG CAP PO SCH (11:11)
[2024-03-23] MEDS: GABAPENTIN 600 MG DOSE PO SCH (11:11)
[2024-03-23] MEDS: ACETAMINOPHEN 500 MG TAB PO SCH (11:11)
[2024-03-23] MEDS ORDERED: LIDOCAINE 2% 2 ML VIAL/AMP(20MG/ML) INFIL ONE (11:14)
[2024-03-23] MEDS ORDERED: GLYCOPYRROLATE 0.2 MG/ML VIAL ONE (11:14)
[2024-03-23] MEDS ORDERED: ONDANSETRON INJ 2 MG/ML 2 ML VIAL ONE (11:14)
[2024-03-23] MEDS ORDERED: ROCURONIUM BROMIDE 10 MG/ML 5 ML VIAL IV ONE ×2 (11:14→12:42)
[2024-03-23] MEDS ORDERED: PROPOFOL IV EMULSION 10 MG/ML 20 ML VIAL IV ONE (11:14)
[2024-03-23] MEDS ORDERED: DEXAMETHASONE SOD INJ 4 MG/ML VIAL ONE (11:14)
[2024-03-23] MEDS ORDERED: MIDAZOLAM HCL 1 MG/ML 2ML VIAL ONE (11:15)
[2024-03-23] MEDS ORDERED: fentaNYL citrate PF 100 MCG/2 ML VIAL ONE ×2 (11:15→13:38)
[2024-03-23] MEDS ORDERED: SUGAMMADEX SODIUM 200 MG/2 ML VIAL IV ONE ×2 (11:19→11:44)
[2024-03-23] MEDS ORDERED: ePHEDrine sulfate 50 MG/ML AMP IV PRN (11:20)
[2024-03-23] MEDS ORDERED: ONDANSETRON INJ 2 MG/ML 2 ML VIAL IV PRN ×2 (11:20→16:16)
[2024-03-23] MEDS ORDERED: ATROPINE SULFATE 0.1 MG/ML 10ML SYR IV PRN (11:20)
[2024-03-23] MEDS ORDERED: fentaNYL citrate PF 100 MCG/2 ML VIAL IV PRN (11:20)
[2024-03-23] MEDS ORDERED: HYDROmorphone INJ 2 MG/ML SYR/VIAL IV PRN (11:20)
--- NOTE | 2024-03-23 11:58 | History & Physical Bridge Note ---
Date of Service March 23, 2024 History & Physical Bridge Note I have examined the patient, reviewed the History & Physical and in the interval since the performance of the History & Physical I have noted the following changes of clinical significance: no changes noted
--- NOTE | 2024-03-23 11:59 | History & Physical Report ---
Date of Service March 23, 2024 Assessment & Plan (1) Spondylolisthesis, lumbar region: Plan: L3-L4 decompression and fusion, L4-L5 hardware removal History of Present Illness Chief Complaint: Back and bilateral leg pain Primary Care Provider: German Aguirre MD This is a 58-year-old male presents chronic persistent back and bilateral leg pain and failing course of nonoperative care is here for surgical invention. Allergies Allergy/AdvReac Type Severity Reaction Status Date / Time No Known Allergies Allergy Verified 03/23/24 11:03 Home Medications Medication Instructions Recorded Confirmed Type zivnvvv-chdqllubtpwyr-txizuqaf 250 1 tab PO Q6H PRN Migraine Headache 09/30/21 03/23/24 History mg-250 mg-65 mg tablet (Excedrin Migraine) escitalopram oxalate 10 mg tablet 20 mg PO QAM 09/30/21 03/23/24 History (Lexapro) levothyroxine 137 mcg tablet 137 mcg PO QAM 09/30/21 03/23/24 History losartan 50 mg-hydrochlorothiazide 1 tab PO QAM 09/30/21 03/23/24 History 12.5 mg tablet rosuvastatin 20 mg tablet 20 mg PO QAM 09/30/21 03/23/24 History furosemide 20 mg tablet 20 mg PO QAM 02/18/24 03/23/24 History Past Med/Surg History Problem List (Updated 03/23/24 @ 11:59 by Rohith Estevez DO) Spondylolisthesis, lumbar region Aortic stenosis KIRBY (obstructive sleep apnea) Hypothyroidism HLD (hyperlipidemia) HTN (hypertension) Neurogenic claudication due to lumbar spinal stenosis Encounter for pre-operative examination Medical History (Updated 03/23/24 @ 11:59 by Rohith Estevez DO) Sick sinus syndrome per cardiology records: 06/07/21. ETT, sub max HR 69% GERD (gastroesophageal reflux disease) controlled, stable per pt Asthma exercise induced, stable-denies inhalers Atrial fibrillation no meds, [facility] Aortic stenosis Mild aortic stenosis (MG 17.0 mmHg) History of COVID-19 (~2019) 01/2020-denies hospitalization-residual symptoms-mild memory changes Migraine Hypertension controlled, stable per pt Hyperlipidemia Depression Anxiety Hypothyroidism Severe sleep apnea CPAP-compliant Surgical History History of shoulder surgery right-rotator cuff x 2 History of esophagogastroduodenoscopy (EGD) History of colonoscopy Hx of surgical procedure laser spine procedure lumbar History of cholecystectomy History of appendectomy History of tooth extraction History of tonsillectomy History of adenoidectomy History of lumbar fusion x 2, L4 L5 S1 Family History Other Adopted Social History Smoking Status: Never smoker Second Hand Exposure: No; Do You Dip or Chew Tobacco: No; Tobacco Cessation Education Requested by Patient: No Hx Alcohol Use: No Hx Substance Use: No Preferred Language: Romanian Communication Ability: Effective Optic Fibre Drawer Required: No Beliefs That Will Affect Care: None Current Living Situation: Spouse Other Information That Helps Us Care for You: No Feels Safe at Home: Yes Safety Concerns: Feels Safe At This Time Assistive Devices: Denture - Upper and Glasses Physical Exam Physical Exam: Patient is alert and oriented Heart regular rhythm Lungs clear Results & Data Results & Data Vital Signs (Past 12 Hours) Vital Signs Temp Pulse Resp BP Pulse Ox O2 Del Method 03/23/24 10:57 36.6 C 57 L 20 114/73 96 Room Air
[2024-03-23] MEDS: ceFAZolin 3000MG 3,000 MG/72.5 ML BAG IV SCH (12:20)
[2024-03-23] MEDS: BUPIVACAINE/EPINEPHRINE 0.25% 1:200,000 30 ML VIAL ONE (12:47)
[2024-03-23] MEDS: ceFAZolin 330 MG/ML 1 GM VIAL ONE (12:47)
[2024-03-23] MEDS: FLOSEAL HEMOSTATIC MATRIX 10ML TOP ONE (14:01)
--- NOTE | 2024-03-23 14:12 | Operative Report ---
Post Operative Report Pre & Post Diagnosis Operation Date: 03/23/24 12:25 Pre-Op Diagnosis: #1 lumbar spondylosis with radiculopathy. #2 lumbar spondylolisthesis L3-L4. #3 lumbar spinal stenosis. #4 obesity post-Op Diagnosis: Same I identified the patient and participated in the time-out.: Yes Procedure Operation Date: 03/23/24 12:25 Actual Procedures #1 removal of posterior instrumentation L4-L5. #2 exploration of fusion L4-5. #3 lumbar compression with bilateral medial facetectomies and foraminotomies L2- L3 L3-L4. #4 posterior spinal fusion L3-L4. #5 placement of posterior instrumentation L3-L5. #6 interbody fusion L3-L4 per #7 placement of Spira 14 x 26 mm cage x 2 at L3-L4. #8 placement locally harvested morselized autograft in the posterior gutters. #9 placement infuse collagen sponge combined with Koros bone graft in the posterior lateral gutters and os design and interbody space. #9 application of versa wrap of the exposed dura. Surgeon Rohith Estevez, DO [employer] Liya Montilla Estimated Blood Loss 400 Findings See Below Patient is 6 foot 2 weighing over 120 kg with a BMI in excess of 36. Patient's body habitus did contribute to significant technical difficulty required deepest retractors longer instruments in order to perform his procedure. This added at least 50% increased operative time. Specimens None Indications This is a 58-year-old male known to the presents above-mentioned diagnosis after failing course of nonoperative care is here for surgical intervention. Description of Procedure Patient was met with identified informed consent obtained. Patient was then taken to the operative suite underwent intubation placed in a prone position on the Robert table on the top of the Tobias frame. All bony prominences well- padded eyes inspected to ensure no external pressure placed upon them. This point lumbar spine was prepped and draped in the normal sterile fashion. Sharp dissection with the assistance of Bovie cautery performed down to and exposing the lamina and transverse processes of L3 and instrumentation at L4-5 bilaterally. I then proceeded move the hardware bilaterally explored the fusion mass noting it being mature and intact. Informed complete laminectomy of L3 with bilateral medial facetectomies and foraminotomies addressing severe spinal neural compression. Then performed a partial laminectomy of L2 including bilateral medial facetectomies to address all subarticular stenosis. Pedicle screws were then placed in L3 L4-5 bilaterally with assistance of fluoroscopy and appropriate size lopez contoured and placed. By way of a transforaminal approach on the right a discectomy of L3-L4 was performed endplates corrected to subcortical bleeding bone and a 14 x 26 mm Spira cage filled with os design bone graft tapped in position. Then proceeded to the left transforaminal region at L3-L4. Discectomy performed. Endplates guided to subcortical bleeding bone and a second 14 x 26 mm spiral cage filled with os design bone graft tapped position. The rods were then compressed locked in final position bilaterally. The transverse processes of L3-L4 burred to subcortical bleeding bone. Infuse collagen sponge, with Koros and local autograft placed in the posterior lateral gutters. Versa wrap placed over the exposed dura. 15 round TANIKA drain inserted. The incision was then closed with 1 Vicryl in the fascia 2-0 Vicryl subcutaneously and 4 Monocryl for final skin closure. Steri-Strips and sterile dressing placed. Patient waken taken to PACU stable condition. Please note spinal cord monitoring was utilized at the procedure no changes noted. Liya Montilla was present at the entire surgery and while the patient positioning complex portion of the surgery and final skin closure. I attest to the content of the Intraoperative Record and any orders documented therein. Any exceptions are noted below.
--- NOTE | 2024-03-23 14:57 | Fluoroscopy Report ---
FL lumbar spine 2-3V CLINICAL HISTORY: L3-4 DECOMP AND FUSION COMPARISON STUDY: Lumbar spine fluoroscopic images October 25, 2021. FLUOROSCOPY TIME: 10.6 seconds. jacqueline Salgado: 10.16 mGy FLUOROSCOPIC IMAGES: 2 FINDINGS: Previous L5-S1 discectomy with spacer placement as well as a previous L4-L5 decompression a nd fusion. Fluoroscopy was provided during hardware removal and subsequent L3-L4 discectomy with inte rbody spacer placement. There are bilateral pedicle screws at the L3, L4 and L5 levels. IMPRESSION: Fluoroscopy provided during hardware removal and subsequent L3-L4 discectomy and decomp ression. Bilateral pedicle screw fusion from L3 through L5. ACT 112: Negative or not required by law. Electronically signed by: Semaj Correa M.D. 03/23/2024 2:56 PM
--- NOTE | 2024-03-23 15:00 | Anesthesiology Progress Note ---
Date of Service March 23, 2024 Anesthesia Post Procedure Vital Signs Vital Signs: Temp Pulse Pulse Resp BP Pulse Ox O2 Del Method 03/23/24 14:50 76 16 100/50 L 96 Oxymask 03/23/24 14:40 74 16 91/49 L 93 Oxymask 03/23/24 14:30 73 16 101/56 L 93 Oxymask 03/23/24 14:22 37.3 C 59 L 16 97/53 L 93 Oxymask 03/23/24 10:57 36.6 C 57 L 20 114/73 96 Room Air O2 Flow Rate 03/23/24 14:50 15 03/23/24 14:40 15 03/23/24 14:30 15 03/23/24 14:22 15 03/23/24 10:57 Pain Intensity Bilateral Back: Pain Intensity: 7 Transfer of Care Handoff Completed per policy Notes Mental Status: alert / awake / arousable Patient Amnestic to Procedure: Yes Nausea / Vomiting: adequately controlled Pain: adequately controlled Airway Patency, RR, SpO2: stable & adequate BP & HR: stable & adequate Hydration State: stable & adequate Anesthetic Complications: no major complications apparent
[2024-03-23] MEDS ORDERED: FAMOTIDINE 20 MG TAB PO PRN (16:16)
[2024-03-23] MEDS ORDERED: ALUMINUM/MAGNESIUM SUSP 30 ML UDC PO PRN (16:16)
[2024-03-23] MEDS ORDERED: bisacodyL 10 MG SUPP PR PRN (16:16)
[2024-03-23] MEDS ORDERED: SOD PHOSPHATE/SOD BIPHOSPHATE ENEMA 132 ML BTL PR PRN (16:16)
[2024-03-23] MEDS ORDERED: PROMETHAZINE 12.5 MG/50.5 ML BAG IV PRN (16:16)
[2024-03-23] MEDS ORDERED: METOCLOPRAMIDE HCL INJ 5 MG/ML 2 ML VIAL IV PRN (16:16)
[2024-03-23] MEDS ORDERED: ACETAMINOPHEN 500 MG TAB PO PRN (16:16)
[2024-03-23] MEDS ORDERED: LORazepam 0.5 MG TAB PO PRN (16:16)
[2024-03-23] MEDS ORDERED: HYDROmorphone INJ 1 MG/ML SYRINGE IV PRN (16:16)
[2024-03-23] MEDS ORDERED: NALOXONE HCL 0.4 MG/1 ML VIAL/CARP IV PRN (16:16)
[2024-03-23] MEDS ORDERED: DO NOT ADMINISTER FLU VACCINE PRN (16:16)
[2024-03-23] MEDS ORDERED: DO NOT ADMINISTER PNEUMOCOCCAL VACCINE PRN (16:16)
[2024-03-23] MEDS ORDERED: LORazepam 2 MG/1 ML VIAL IV PRN (16:16)
[2024-03-23] MEDS ORDERED: hydrOXYzine HCl 25 MG TAB PO PRN (16:16)
[2024-03-23] MEDS ORDERED: diphenhydrAMINE Capsule 25 MG CAP PO PRN (16:16)
[2024-03-23] MEDS ORDERED: ACETAMINOPHEN 1,000 MG/100 ML VIAL IV PRN (16:16)
[2024-03-23] MEDS ORDERED: MAGNESIUM HYDROXIDE SUSP 30 ML UDC PO PRN (16:16)
[2024-03-23] MEDS ORDERED: ONDANSETRON 4 MG OD TAB PO PRN (16:16)
[2024-03-23] MEDS ORDERED: traMADol HCL 50 MG TABLET PO PRN (16:16)
[2024-03-23] MEDS: HYDROmorphone INJ 0.5 MG/0.5 ML SYR IV PRN (16:37)
[2024-03-23] MEDS: LR 500ML BOLUS IV SCH (17:01)
--- NOTE | 2024-03-23 17:30 | Consultation ---
Date of Consultation March 23, 2024 Assessment & Plan (1) Neurogenic claudication due to lumbar spinal stenosis: (2) Spondylolisthesis, lumbar region: (3) KIRBY (obstructive sleep apnea): (4) Aortic stenosis: (5) HTN (hypertension): (6) HLD (hyperlipidemia): (7) Hypothyroidism: Plan 58 y/o that underwent L3-L4 decompression and fusion surgery with L4-L5 hardware removal that was performed by Dr. Estevez today after failed conservative management from back and leg pain. [facility]. Neurogenic claudication d/t lumbar spinal stenosis: L3-L4 decompression and fusion surgery with L4-L5 hardware removal performed by Dr. Estveez POD: #0 Pre op Hgb from 03/02/23; 13.3 EBL: 400mL; TANIKA drain in place. Ortho to manage pain control, wound care, anticoagulation and activities Incentive spirometry post op PT/OT when appropriate; neurovascular checks per protocol AM labs; CBC/BMP HTN: Stable post op; continue losartan/HCTZ HLD: Stable; continue rosuvastatin Hypothyroidism: Stable; continue Synthroid Anxiety/Depression: Stable; continue Lexapro KIRBY: Stable; has been using new cpap machine for past year; brought his own from home ok to use home cpap tonight; order placed Aortic Stenosis: Mild; follows with [facility] in [place]. audible murmur grade IV/ on examination Disposition: PCP: Dr. Aguirre VTE Prophylaxis: SCD/TEDS Code Status: Full Code Contact: Kaci, : [phone] I spent a total of 62 minutes coordinating, documenting, and providing care for this patient excluding time spent inthe performance of separately billed services or time spent by another provider/QHP. Supervising Physician Co-Signing Physician Notes 58 yo M was seen at bedside as medical consult s/p lumbar spine sx. He is hemodynamically stable, reports operative site pain under control. Agree w/ A&P and exam as above. Time spent: 12 min History of Present Illness Requesting Physician: Dr. Estevez Reason for Consultation: post operative medical management Attending Physician: Rohith Estevez, DO History of Present Illness Mr. Garvey is a 58 year old male that presented to the [facility] for a planned elective procedure under the care of Dr. Estevez for L3-L4 decompression and fusion and L4-L5 hardware removal. he underwent an L4- L5 decompression fusion surgery under the care of Dr. Estevez in October 2021. Additional PMH includes: HTN, HLD, hypothyroidism, depression, Aortic stenosi s, and KIRBY. Pt denies ROSARIO, dizziness, chest pain, palpitations, peripheral neuropathy, nausea, vomiting, diarrhea Pt . Has TANIKA drain x 1. No Vasquez catheter. Patient complaining of some incisional pain from when he came up from the PACU; RN provided pain medication. He tolerated dinner well and is eager to get moving. [facility] medical man agement. We are available 01/09 via [place] Text with any questions or concerns. Allergies Allergy/AdvReac Type Severity Reaction Status Date / Time No Known Allergies Allergy Verified 03/23/24 11:03 Home Medications Medication Instructions Recorded Confirmed Type [id number] 250 1 tab PO Q6H PRN Migraine Headache 09/30/21 03/23/24 History mg-250 mg-65 mg tablet (Excedrin Migraine) escitalopram oxalate 10 mg tablet 20 mg PO QAM 09/30/21 03/23/24 History (Lexapro) levothyroxine 137 mcg tablet 137 mcg PO QAM 09/30/21 03/23/24 History losartan 50 mg-hydrochlorothiazide 1 tab PO QAM 09/30/21 03/23/24 History 12.5 mg tablet rosuvastatin 20 mg tablet 20 mg PO QAM 09/30/21 03/23/24 History furosemide 20 mg tablet 20 mg PO QAM 02/18/24 03/23/24 History Patient History Medical History Sick sinus syndrome per cardiology records: 06/07/21. ETT, sub max HR 69% GERD (gastroesophageal reflux disease) controlled, stable per pt Asthma exercise induced, stable-denies inhalers Atrial fibrillation no meds, follows with [facility] Aortic stenosis Mild aortic stenosis (MG 17.0 mmHg) History of COVID-19 (~2019) 01/2020-denies hospitalization-residual symptoms-mild memory changes Migraine Hypertension controlled, stable per pt Hyperlipidemia Depression Anxiety Hypothyroidism Severe sleep apnea CPAP-compliant Surgical History History of shoulder surgery right-rotator cuff x 2 History of esophagogastroduodenoscopy (EGD) History of colonoscopy Hx of surgical procedure laser spine procedure lumbar History of cholecystectomy History of appendectomy History of tooth extraction History of tonsillectomy History of adenoidectomy History of lumbar fusion x 2, L4 L5 S1 Family History Other Adopted Social History Smoking Status: Never smoker Second Hand Exposure: No; Do You Dip or Chew Tobacco: No; Tobacco Cessation Education Requested by Patient: No Hx Alcohol Use: No Hx Substance Use: No Preferred Language: Bahraini Communication Ability: Effective Production Control Manager Required: No Beliefs That Will Affect Care: None Current Living Situation: Spouse Other Information That Helps Us Care for You: No Feels Safe at Home: Yes Safety Concerns: Feels Safe At This Time Assistive Devices: Denture - Upper and Glasses Review of Systems Review of Systems: Neuro: (-) Falls, trauma, slurred speech HEENT: (-) ROSARIO, dizziness, dysphagia, visual or auditory changes CV: (-) CP, palpitations, swelling Resp: (-) SOB GI: (-) appetite changes, N/V/D, bowel changes : (-) urinary changes Skin: (-) rashes Psych: (-) anxiety, depression Physical Exam Physical Exam: Neuro: AAOx4, PERRLA, no aphagia, memory changes, CNII-XII grossly intact HEENT: head normocephalic, moist mucus membranes CV: S1/S2, (+) audible M left sternal border grade IV/. (-)G/R, (-) edema, cap refill < 3 seconds TANIKA drain x1 with alta red bloody drainage Resp: Lungs CTA in all rivers. On RA GI: Abdomen S/NT/ND, Ax4 bowel sounds, (-) CVA tenderness Musculoskeletal: 5/5 B/L UE strength, 5/5 B/L LE strength. No gait disturbance Skin: (-) rashes , (-) erythema. vertical lumbar incision with C/D/I dressing. Psych: euthymic mood Results & Data Vital Signs (Past 12 Hours) Vital Signs Temp Pulse Pulse Resp BP BP Pulse Ox 03/23/24 17:00 36.2 C L 78 16 118/71 96 03/23/24 16:37 82 16 115/72 95 03/23/24 16:00 03/23/24 16:00 36.5 C 79 16 139/68 95 03/23/24 15:50 79 17 140/67 96 03/23/24 15:35 75 17 127/72 96 03/23/24 15:20 80 17 121/70 96 03/23/24 15:10 36.8 C 79 16 123/70 96 03/23/24 15:00 74 16 128/71 95 03/23/24 14:50 76 16 100/50 L 96 03/23/24 14:40 74 16 91/49 L 93 03/23/24 14:30 73 16 101/56 L 93 03/23/24 14:22 37.3 C 59 L 16 97/53 L 93 03/23/24 10:57 36.6 C 57 L 20 114/73 96 O2 Del Method O2 Flow Rate 03/23/24 17:00 Nasal Cannula 2 03/23/24 16:37 Nasal Cannula 2 03/23/24 16:00 Nasal Cannula 2 03/23/24 16:00 Nasal Cannula 2 03/23/24 15:50 Nasal Cannula 4 03/23/24 15:35 Nasal Cannula 4 03/23/24 15:20 Nasal Cannula 4 03/23/24 15:10 Nasal Cannula 4 03/23/24 15:00 Nasal Cannula 4 03/23/24 14:50 Oxymask 15 03/23/24 14:40 Oxymask 15 03/23/24 14:30 Oxymask 15 03/23/24 14:22 Oxymask 15 03/23/24 10:57 Room Air Diagnostic Findings Lumbar Spine X-Ray 03/23/24 00:00 FL lumbar spine 2-3V CLINICAL HISTORY: L3-4 DECOMP AND FUSION COMPARISON STUDY: Lumbar spine fluoroscopic images October 25, 2021. FLUOROSCOPY TIME: 10.6 seconds. Ka,r: 10.16 mGy FLUOROSCOPIC IMAGES: 2 FINDINGS: Previous L5-S1 discectomy with spacer placement as well as a previous L4-L5 decompression and fusion. Fluoroscopy was provided during hardware removal and subsequent L3-L4 discectomy with interbody spacer placement. There are bilateral pedicle screws at the L3, L4 and L5 levels. IMPRESSION: Fluoroscopy provided during hardware removal and subsequent L3-L4 discectomy and decompression. Bilateral pedicle screw fusion from L3 through L5. ACT 112: Negative or not required by law. Electronically signed by: Semaj Correa M.D. 03/23/2024 2:56 PM
[2024-03-23] MEDS: oxyCODONE HCL IR 5 MG TAB (IMMEDIATE RELEASE) PO PRN (19:13)
[2024-03-23] MEDS: ceFAZolin 2000MG 2,000 MG/15 ML SYR IV SCH (20:17)
[2024-03-23] MEDS: DOCUSATE SODIUM/SENNA 50/8.6MG TAB PO SCH (20:17)
[2024-03-24] MEDS: LEVOTHYROXINE SODIUM 137 MCG TABLET PO SCH (05:07)
[2024-03-24] MEDS: POLYETHYLENE (MIRALAX) 17 GM PACK PO SCH (05:09)
[2024-03-24 06:58] LABS: Basophils # (auto) 0.02 K/uL (0.00-0.20); Basophils % (auto) 0.1 %; Hematocrit (blood only) 35.2 % (42.0-52.0); Hemoglobin 11.7 g/dl (14.0-18.0); Immature Granulocytes # (auto) 0.07 K/uL (0.01-0.20); Immature Granulocytes % (auto) 0.5 %; Lymphocytes # (auto) 1.02 K/uL (1.20-3.40); Lymphocytes % (auto) 7.3 %; Mean Corpuscular Hemoglobin 29.3 pg (25.0-34.0); Mean Corpuscular Hgb Conc 33.2 g/dL (32.0-36.0); Mean Corpuscular Volume 88.2 fL (80.0-100.0); Mean Platelet Volume 10.3 fL (9.4-12.4); Monocytes # (auto) 0.77 K/uL (0.11-0.59); Monocytes % (auto) 5.5 %; Neutrophils # (auto) 12.03 K/uL (1.40-6.50); Neutrophils % (auto) 86.6 %; Platelet Count 252 K/uL (130-400); RDW Coefficient of Variation 11.9 % (11.5-14.5); RDW Standard Deviation 38.5 fL (36.4-46.3); Red Blood Count 3.99 M/uL (4.70-6.10); White Blood Count 13.91 K/ul (4.8-10.8)
[2024-03-24 07:27] LABS: BUN Creatinine Ratio 20.7 (10-20); Calcium 8.7 mg/dl (8.6-10.3); Creatinine Clr Calc Pharmacy 130.2 ml/min; Potassium 4.2 mmol/L (3.5-5.1)
[2024-03-24] MEDS: LOSARTAN/HCTZ 50/12.5MG TAB PO SCH (07:38)
[2024-03-24] MEDS: ESCITALOPRAM OXALATE 20 MG TAB PO SCH (07:38)
[2024-03-24] MEDS: ROSUVASTATIN CALCIUM 20 MG TAB PO SCH (07:38)
[2024-03-24] MEDS: dexAMETHasone 6 MG in SYRINGE 0 ML IV SCH (07:39)
[2024-03-24] MEDS: FUROSEMIDE 20 MG TAB PO SCH (07:39)
--- NOTE | 2024-03-24 07:50 | Hospitalist Progress Note ---
Date of Service March 24, 2024 Assessment & Plan (1) Neurogenic claudication due to lumbar spinal stenosis: (2) Spondylolisthesis, lumbar region: (3) KIRBY (obstructive sleep apnea): (4) Aortic stenosis: (5) HTN (hypertension): (6) HLD (hyperlipidemia): (7) Hypothyroidism: Plan 58 y/o that underwent L3-L4 decompression and fusion surgery with L4-L5 hardware removal that was performed by Dr. Estevez today after failed conservative management from back and leg pain. [facility]. Neurogenic claudication d/t lumbar spinal stenosis: L3-L4 decompression and fusion surgery with L4-L5 hardware removal performed by Dr. Estevez POD: #1 Pre op Hgb from 03/02/23; 13.3 Ortho to manage pain control, wound care, anticoagulation and activities Incentive spirometry post op PT/OT ; neurovascular checks per protocol AM labs; CBC/BMP Anemia- acute blood loss, post-op, vs dilutional Pre op Hgb from 03/02/23; 13.3 Current Hgb 11.7 expected, no need for blood transfusion at this time HTN: hold losartan/HCTZ, monitor BP HLD: continue rosuvastatin Hypothyroidism: continue Synthroid Anxiety/Depression: continue Lexapro KIRBY: Stable; has been using new cpap machine for past year; brought his own from home ok to use home cpap; order placed Aortic Stenosis: Mild; follows with in [place]. Disposition: PCP: Dr. Aguirre VTE Prophylaxis: SCD/TEDS Code Status: Full Code Contact: Kaci, : [phone] Admission and Anticipated Discharge Date Admission Date: March 23, 2024 Subjective Pt seen in follow up of med consult , pt s/p lumbar spine surgery Currently sitting up in chair in NAD denies any chest pain, shortness of breath, no abd. pain, n/v . urinating w/o difficulty. no BM. Ambulating. Some back pain otherwise feeling well Review of Systems Review of Systems: All systems reviewed & are unremarkable except as noted in Subjective Physical Exam Physical Exam: General : obese M in NAD HEENT: NC/AT. moist mucus membranes CV: regular, + syst. murmur. no edema, +TANIKA drain x1 with bloody drainage Resp: Lungs CTA in all rivers. On RA GI: Abdomen S/NT/ND, Ax4 bowel sounds Musculoskeletal: moves extremities Skin: (-) rashes , (-) erythema. + vertical lumbar incision with C/D/I dressing. Neuro: awake, alert, answers appropriately, speech fluent, no facial asymmetry, moves extremities Psych: euthymic mood Results & Data Results & Data Vital Signs (Past 12 Hours) Vital Signs Temp Pulse Resp BP Pulse Ox O2 Del Method 03/24/24 07:23 36.5 C 69 16 102/61 95 Room Air 03/24/24 03:15 36.6 C 91 H 18 119/72 96 Room Air 03/23/24 23:00 36.5 C 88 18 145/73 H 95 Room Air 03/23/24 22:29 Room Air Laboratory Results 03/24/24 Range/Units 06:33 WBC 13.91 H (4.8-10.8) K/ul RBC 3.99 L (4.70-6.10) M/uL Hgb 11.7 L (14.0-18.0) g/dl Hct 35.2 L (42.0-52.0) % MCV 88.2 (80.0-100.0) fL MCH 29.3 (25.0-34.0) pg MCHC 33.2 (32.0-36.0) g/dL RDW Std Deviation 38.5 (36.4-46.3) fL RDW Coeff of Rosalba 11.9 (11.5-14.5) % Plt Count 252 (130-400) K/uL MPV 10.3 (9.4-12.4) fL Immature Gran % (Auto) 0.5 % Neut % (Auto) 86.6 % Lymph % (Auto) 7.3 % [place] % (Auto) 5.5 % Eos % (Auto) 0.0 % Baso % (Auto) 0.1 % Neut # (Auto) 12.03 H (1.40-6.50) K/uL Lymph # (Auto) 1.02 L (1.20-3.40) K/uL [place] # (Auto) 0.77 H (0.11-0.59) K/uL Eos # (Auto) 0.00 (0.00-0.50) K/uL Baso # (Auto) 0.02 (0.00-0.20) K/uL Immature Gran # (Auto) 0.07 (0.01-0.20) K/uL Sodium 136 (136-145) mmol/L Potassium 4.2 (3.5-5.1) mmol/L Chloride 102 (98-107) mmol/L Carbon Dioxide 27 (21-32) mmol/L Anion Gap 7 (3-11) BUN 18 (6-23) mg/dl Creatinine 0.87 (0.6-1.4) mg/dl Est Cr Clr Drug Dosing 130.2 ml/min eGFR 99.40 BUN/Creatinine Ratio 20.7 H (10-20) Glucose 152 H (70-99(Fasting)) mg/dl Calcium 8.7 (8.6-10.3) mg/dl Medications Administered Current Inpatient Medications Acetaminophen (Acetaminophen 500 Mg Tab) 1,000 mg PO Q8H PRN PRN Reason: MILD Pain Scale 1,2,3 & Pre PT Stop: 04/22/24 16:15 Al Hydrox/Mg Hydrox/Simethicone (Aluminum/Magnesium Susp 30 Ml Udc) 30 ml PO Q6H PRN PRN Reason: Dyspepsia Stop: 04/22/24 16:15 Bisacodyl (Bisacodyl 10 Mg Supp) 10 mg KS DAILY PRN PRN Reason: Constipation Stop: 04/22/24 16:15 Diphenhydramine HCl (Diphenhydramine Capsule 25 Mg Cap) 25 mg PO Q6H PRN PRN Reason: Allergic Rhinitis/Insomnia Stop: 04/22/24 16:15 Escitalopram Oxalate (Escitalopram Oxalate 20 Mg Tab) [facility] [place] Stop: 04/23/24 08:59 Last Admin: 03/24/24 07:38 Dose: 20 mg Famotidine (Famotidine 20 Mg Tab) 20 mg PO Q12H PRN PRN Reason: Dyspepsia Stop: 04/22/24 16:15 Furosemide (Furosemide 20 Mg Tab) 20 [facility] [place] Stop: 04/23/24 08:59 Last Admin: 03/24/24 07:39 Dose: 20 mg HCTZ/Losartan Potassium (Losartan/Hctz 50/12.5mg Tab) 1 tab PO QAM [facility] Stop: 04/23/24 08:59 Last Admin: 03/24/24 07:38 Dose: 1 tab Hydromorphone HCl (Hydromorphone Inj 0.5 Mg/0.5 Ml Syr) 0.5 mg IV Q3H PRN PRN Reason: MODERATE Pain (Scale 4,5,6) & Pre PT Stop: 04/06/24 16:15 Last Admin: 03/23/24 20:17 Dose: 0.5 mg Hydromorphone HCl (Hydromorphone Inj 1 Mg/Ml Syringe) 1 mg IV Q3H PRN PRN Reason: SEVERE Pain (Scale 7,8,9,10) Stop: 04/06/24 16:15 Hydroxyzine HCl (Hydroxyzine Hcl 25 Mg Tab) 25 mg PO Q8H PRN PRN Reason: Anxiety Stop: 04/22/24 16:15 Acetaminophen (Ofirmev) 1,000 mg in 100 mls @ 400 mls/hr IV Q8H PRN PRN Reason: Pain Rating 1-3 & Pre PT Stop: 03/24/24 16:16 Promethazine HCl (Phenergan) 12.5 mg in 50.5 mls @ 202 mls/hr IV Q6H PRN PRN Reason: Nausea And Vomiting Stop: 04/22/24 16:15 Dexamethasone 6 mg/ Syringe 1.5 mls @ 1 mls/min IV DAILY ILANA Stop: 03/26/24 09:02 Last Admin: 03/24/24 07:39 Dose: 1 mls/min Influenza Virus Vaccine Quadrival (Do Not Administer Flu Vaccine) 1 each N/A PRN PRN PRN Reason: Notification Stop: 04/22/24 16:15 Levothyroxine Sodium (Levothyroxine Sodium 137 Mcg Tablet) 137 mcg PO DAILYBB [facility] Stop: 04/23/24 06:29 Last Admin: 03/24/24 05:07 Dose: 137 mcg Lorazepam (Lorazepam 0.5 Mg Tab) 0.5 mg PO Q8H PRN PRN Reason: Sedation/Anxiety Stop: 04/22/24 16:15 Lorazepam (Lorazepam 2 Mg/1 Ml Vial) 0.5 mg IV Q8H PRN PRN Reason: Sedation/Anxiety Stop: 04/22/24 16:15 Magnesium Hydroxide (Magnesium Hydroxide Susp 30 Ml Udc) 30 ml PO Q24H PRN PRN Reason: Constipation Stop: 04/22/24 16:15 Metoclopramide HCl (Metoclopramide Hcl Inj 5 Mg/Ml 2 Ml Vial) 10 mg IV Q6H PRN PRN Reason: Nausea &/or Vomiting Stop: 04/22/24 16:15 Naloxone HCl (Naloxone Hcl 0.4 Mg/1 Ml Vial/Carp) 0.1 mg IV Q5M PRN PRN Reason: Oversedation/Resp depression Stop: 04/22/24 16:15 Ondansetron HCl (Ondansetron Inj 2 Mg/Ml 2 Ml Vial) 4 mg IV Q6H PRN PRN Reason: Nausea &/or Vomiting Stop: 04/22/24 16:15 Ondansetron HCl (Ondansetron 4 Mg Od Tab) 4 mg PO Q6H PRN PRN Reason: Nausea Stop: 04/22/24 16:15 Oxycodone HCl (Oxycodone Hcl Ir 5 Mg Tab (Immediate Release)) 5 - 10 mg PO Q4H PRN PRN Reason: Pain & Pre PT Stop: 04/06/24 16:15 Last Admin: 03/24/24 05:09 Dose: 5 mg Pneumococcal Polyvalent Vaccine (Do Not Administer Pneumococcal Vaccine) 1 each N/A PRN PRN PRN Reason: Notification Stop: 04/22/24 16:15 Polyethylene Glycol (Polyethylene (Miralax) 17 Gm Pack) 17 gm PO Q6 ILANA Stop: 04/23/24 05:59 Last Admin: 03/24/24 05:09 Dose: 17 gm Rosuvastatin Calcium (Rosuvastatin Calcium 20 Mg Tab) 20 mg PO QAM ILANA Stop: 04/23/24 08:59 Last Admin: 03/24/24 07:38 Dose: 20 mg Senna/Docusate Sodium (Docusate Sodium/Senna 50/8.6mg Tab) 2 tab PO HS ILANA Stop: 04/22/24 20:59 Last Admin: 03/23/24 20:17 Dose: 2 tab Sodium Biphosphate/Sodium Phosphate (Sod Phosphate/Sod Biphosphate Enema 132 Ml Btl) 132 ml KS ONE PRN PRN Reason: Constipation Stop: 04/22/24 16:15 Tramadol HCl (Tramadol Hcl 50 Mg Tablet) 50 - 100 mg PO Q4H PRN PRN Reason: Moderate-Severe pain & Pre PT Stop: 04/22/24 16:15
--- NOTE | 2024-03-24 12:14 | Orthopedic Progress Note ---
Date of Service March 24, 2024 Assessment & Plan (1) Spondylolisthesis, lumbar region: Plan: At this time we will continue physical therapy monitor TANIKA operatively discharge home next few days. Admission and Anticipated Discharge Date Admission Date: March 23, 2024 Subjective Back pain is controlled leg pain markedly improved Physical Exam Physical Exam: Patient is in the chair at the bedside. He is comfortable. Is constricted testing. Results & Data Vital Signs (Past 12 Hours) Vital Signs Temp Pulse Resp BP Pulse Ox O2 Del Method 03/24/24 11:37 72 16 102/56 L 98 Room Air 03/24/24 07:23 36.5 C 69 16 102/61 95 Room Air 03/24/24 03:15 36.6 C 91 H 18 119/72 96 Room Air Queries Orthopedic Spine Obesity: Yes
[2024-03-25 06:57] LABS: Hematocrit (blood only) 34.3 % (42.0-52.0); Hemoglobin 11.3 g/dl (14.0-18.0); Mean Corpuscular Hemoglobin 29.5 pg (25.0-34.0); Mean Corpuscular Hgb Conc 32.9 g/dL (32.0-36.0); Mean Corpuscular Volume 89.6 fL (80.0-100.0); Mean Platelet Volume 10.3 fL (9.4-12.4); Platelet Count 232 K/uL (130-400); RDW Coefficient of Variation 12.2 % (11.5-14.5); RDW Standard Deviation 39.1 fL (36.4-46.3); Red Blood Count 3.83 M/uL (4.70-6.10); White Blood Count 11.11 K/ul (4.8-10.8)
[2024-03-25 07:06] VITALS: BP 105/60; PULSE 55; RESP 18; TEMP 98.2; O2SAT 97
[2024-03-25 07:16] LABS: BUN Creatinine Ratio 23.8 (10-20); Calcium 8.8 mg/dl (8.6-10.3); Creatinine Clr Calc Pharmacy 141.6 ml/min; Magnesium 2.1 mg/dl (1.7-2.4); Phosphorus 2.7 mg/dl (2.5-4.9); Potassium 4.1 mmol/L (3.5-5.1)
--- NOTE | 2024-03-25 08:37 | Hospitalist Progress Note ---
Date of Service March 25, 2024 Assessment & Plan (1) Neurogenic claudication due to lumbar spinal stenosis: (2) Spondylolisthesis, lumbar region: (3) KIRBY (obstructive sleep apnea): (4) Aortic stenosis: (5) HTN (hypertension): (6) HLD (hyperlipidemia): (7) Hypothyroidism: Plan 58 y/o that underwent L3-L4 decompression and fusion surgery with L4-L5 hardware removal that was performed by Dr. Estevez today after failed conservative management from back and leg pain. [facility]. Neurogenic claudication d/t lumbar spinal stenosis: L3-L4 decompression and fusion surgery with L4-L5 hardware removal performed by Dr. Estevez POD: #2 Pre op Hgb from 03/02/23; 13.3 Ortho to manage pain control, wound care, anticoagulation and activities Incentive spirometry post op PT/OT ; neurovascular checks per protocol AM labs; CBC/BMP Anemia- acute blood loss, post-op, vs dilutional Pre op Hgb from 03/02/23; 13.3 Current Hgb 11.3 (stable from yesterday 11.7) expected, no need for blood transfusion at this time HTN: hold losartan/HCTZ, monitor BP HLD: continue rosuvastatin Hypothyroidism: continue Synthroid Anxiety/Depression: continue Lexapro KIRBY: Stable; has been using new cpap machine for past year; brought his own from home ok to use home cpap; order placed Aortic Stenosis: Mild; follows with in [place]. Disposition: PCP: Dr. Aguirre VTE Prophylaxis: SCD/TEDS Code Status: Full Code Contact: Kaci, : [phone] Admission and Anticipated Discharge Date Admission Date: March 23, 2024 Subjective Pt seen in follow up of med consult , pt s/p lumbar spine surgery Currently sitting up in chair in NAD denies any chest pain, shortness of breath, no abd. pain, n/v . urinating w/o difficulty. no BM. Ambulating. Some back pain otherwise feeling well Review of Systems Review of Systems: All systems reviewed & are unremarkable except as noted in Subjective Physical Exam Physical Exam: General : obese M in NAD HEENT: NC/AT. moist mucus membranes CV: regular, + syst. murmur. no edema, +TANIKA drain Resp: Lungs CTA in all rivers. On RA GI: Abdomen S/NT/ND, Ax4 bowel sounds Musculoskeletal: moves extremities Skin: (-) rashes , (-) erythema. + vertical lumbar incision with C/D/I dressing. Neuro: awake, alert, answers appropriately, speech fluent, no facial asymmetry, moves extremities Psych: euthymic mood Results & Data Results & Data Vital Signs (Past 12 Hours) Vital Signs Temp Pulse Resp BP Pulse Ox O2 Del Method 03/25/24 07:06 36.8 C 55 L 18 105/60 97 Room Air 03/24/24 23:33 Room Air Laboratory Results 03/25/24 Range/Units 06:36 WBC 11.11 H (4.8-10.8) K/ul RBC 3.83 L (4.70-6.10) M/uL Hgb 11.3 L (14.0-18.0) g/dl Hct 34.3 L (42.0-52.0) % MCV 89.6 (80.0-100.0) fL MCH 29.5 (25.0-34.0) pg MCHC 32.9 (32.0-36.0) g/dL RDW Std Deviation 39.1 (36.4-46.3) fL RDW Coeff of Rosalba 12.2 (11.5-14.5) % Plt Count 232 (130-400) K/uL MPV 10.3 (9.4-12.4) fL Sodium 139 (136-145) mmol/L Potassium 4.1 (3.5-5.1) mmol/L Chloride 100 (98-107) mmol/L Carbon Dioxide 31 (21-32) mmol/L Anion Gap 8 (3-11) BUN 19 (6-23) mg/dl Creatinine 0.80 (0.6-1.4) mg/dl Est Cr Clr Drug Dosing 141.6 ml/min eGFR 101.95 BUN/Creatinine Ratio 23.8 H (10-20) Glucose 160 H (70-99(Fasting)) mg/dl Calcium 8.8 (8.6-10.3) mg/dl Phosphorus 2.7 (2.5-4.9) mg/dl Magnesium 2.1 (1.7-2.4) mg/dl Medications Administered Current Inpatient Medications Acetaminophen (Acetaminophen 500 Mg Tab) 1,000 mg PO Q8H PRN PRN Reason: MILD Pain Scale 1,2,3 & Pre PT Stop: 04/22/24 16:15 Al Hydrox/Mg Hydrox/Simethicone (Aluminum/Magnesium Susp 30 Ml Udc) 30 ml PO Q6H PRN PRN Reason: Dyspepsia Stop: 04/22/24 16:15 Bisacodyl (Bisacodyl 10 Mg Supp) 10 mg [place] DAILY PRN PRN Reason: Constipation Stop: 04/22/24 16:15 Diphenhydramine HCl (Diphenhydramine Capsule 25 Mg Cap) 25 mg PO Q6H PRN PRN Reason: Allergic Rhinitis/Insomnia Stop: 04/22/24 16:15 Escitalopram Oxalate (Escitalopram Oxalate 20 Mg Tab) 20 mg PO QAM [facility] Stop: 04/23/24 08:59 Last Admin: 03/24/24 07:38 Dose: 20 mg Famotidine (Famotidine 20 Mg Tab) 20 mg PO Q12H PRN PRN Reason: Dyspepsia Stop: 04/22/24 16:15 Furosemide ([facility]semide 20 Mg Tab) [facility] Stop: 04/23/24 08:59 Last Admin: 03/24/24 07:39 Dose: 20 mg HCTZ/Losartan Potassium (Losartan/Hctz 50/12.5mg Tab) 1 [facility] Stop: 04/23/24 08:59 Last Admin: 03/24/24 07:38 Dose: 1 tab Hydromorphone HCl (Hydromorphone Inj 0.5 Mg/0.5 Ml Syr) 0.5 mg IV Q3H PRN PRN Reason: MODERATE Pain (Scale 4,5,6) & Pre PT Stop: 04/06/24 16:15 Last Admin: 03/23/24 20:17 Dose: 0.5 mg Hydromorphone HCl (Hydromorphone Inj 1 Mg/Ml Syringe) 1 mg IV Q3H PRN PRN Reason: SEVERE Pain (Scale 7,8,9,10) Stop: 04/06/24 16:15 Hydroxyzine HCl (Hydroxyzine Hcl 25 Mg Tab) 25 mg PO Q8H PRN PRN Reason: Anxiety Stop: 04/22/24 16:15 Promethazine HCl (Phenergan) 12.5 mg in 50.5 mls @ 202 mls/hr IV Q6H PRN PRN Reason: Nausea And Vomiting Stop: 04/22/24 16:15 Dexamethasone 6 mg/ Syringe 1.5 mls @ 1 mls/min IV DAILY ILANA Stop: 03/26/24 09:02 Last Admin: 03/24/24 07:39 Dose: 1 mls/min Influenza Virus Vaccine Quadrival (Do Not Administer Flu Vaccine) 1 each N/A PRN PRN PRN Reason: Notification Stop: 04/22/24 16:15 Levothyroxine Sodium (Levothyroxine Sodium 137 Mcg Tablet) 137 mcg PO DAILYBB ILANA Stop: 04/23/24 06:29 Last Admin: 03/25/24 05:30 Dose: 137 mcg Lorazepam (Lorazepam 0.5 Mg Tab) 0.5 mg PO Q8H PRN PRN Reason: Sedation/Anxiety Stop: 04/22/24 16:15 Lorazepam (Lorazepam 2 Mg/1 Ml Vial) 0.5 mg IV Q8H PRN PRN Reason: Sedation/Anxiety Stop: 04/22/24 16:15 Magnesium Hydroxide (Magnesium Hydroxide Susp 30 Ml Udc) 30 ml PO Q24H PRN PRN Reason: Constipation Stop: 04/22/24 16:15 Metoclopramide HCl (Metoclopramide Hcl Inj 5 Mg/Ml 2 Ml Vial) 10 mg IV Q6H PRN PRN Reason: Nausea &/or Vomiting Stop: 04/22/24 16:15 Naloxone HCl (Naloxone Hcl 0.4 Mg/1 Ml Vial/Carp) 0.1 mg IV Q5M PRN PRN Reason: Oversedation/Resp depression Stop: 04/22/24 16:15 Ondansetron HCl (Ondansetron Inj 2 Mg/Ml 2 Ml Vial) 4 mg IV Q6H PRN PRN Reason: Nausea &/or Vomiting Stop: 04/22/24 16:15 Ondansetron HCl (Ondansetron 4 Mg Od Tab) 4 mg PO Q6H PRN PRN Reason: Nausea Stop: 04/22/24 16:15 Oxycodone HCl (Oxycodone Hcl Ir 5 Mg Tab (Immediate Release)) 5 - 10 mg PO Q4H PRN PRN Reason: Pain & Pre PT Stop: 04/06/24 16:15 Last Admin: 03/24/24 20:25 Dose: 10 mg Pneumococcal Polyvalent Vaccine (Do Not Administer Pneumococcal Vaccine) 1 each N/A PRN PRN PRN Reason: Notification Stop: 04/22/24 16:15 Polyethylene Glycol (Polyethylene (Miralax) 17 Gm Pack) 17 gm PO Q6 ILANA Stop: 04/23/24 05:59 Last Admin: 03/25/24 05:30 Dose: 17 gm Rosuvastatin Calcium (Rosuvastatin Calcium 20 Mg Tab) 20 mg PO QAM [facility] Stop: 04/23/24 08:59 Last Admin: 03/24/24 07:38 Dose: 20 mg Senna/Docusate Sodium (Docusate Sodium/Senna 50/8.6mg Tab) 2 tab PO HS ILANA Stop: 04/22/24 20:59 Last Admin: 03/24/24 20:25 Dose: 2 tab Sodium Biphosphate/Sodium Phosphate (Sod Phosphate/Sod Biphosphate Enema 132 Ml Btl) 132 ml OR ONE PRN PRN Reason: Constipation Stop: 04/22/24 16:15 Tramadol HCl (Tramadol Hcl 50 Mg Tablet) 50 - 100 mg PO Q4H PRN PRN Reason: Moderate-Severe pain & Pre PT Stop: 04/22/24 16:15
--- NOTE | 2024-03-25 10:05 | Discharge Summary ---
Date of Service March 25, 2024 Admission HPI Per Admitting Provider This is a 58-year-old male presents chronic persistent back and bilateral leg pain and failing course of nonoperative care is here for surgical invention. Principal Diagnosis Lumbar spondylolisthesis with radiculopathy Discharge Data Allergies Allergy/AdvReac Type Severity Reaction Status Date / Time No Known Allergies Allergy Verified 03/23/24 11:03 Consultations 03/23/24 16:16 Consult Hospitalist Routine Procedures Performed Operation Date: 03/23/24 12:25 Actual Procedures p L3 to L4 Decompression and Fusion, Spinal Cord Monitoring - Rohith Estevez DO s L4 to L5 Hardware Removal, - Rohith Estevez DO Ordered Studies 03/23/24 [place] lumbar spine 2-3V Routine Hospital Course (1) Spondylolisthesis, lumbar region: Patient underwent lumbar decompression fusion tolerated as well as taken ortho pedic for postoperative. Postop he progressed appropriately marked improvement of his pain. Ambulating well. TANIKA drain decreasing. Pain well-controlled. Simply discharged home per discharge orders and instructions from the chart for further review. Total Time Total Time Spent Total Time Spent (In Minutes): 20 minutes Discharge Plan Discharge Items Patient Disposition: Home - Self-Care Reason For Visit: Lumbar Disc Disease, [place] Facet Arthropathy Discharge Diagnosis: Lumbar spondylolisthesis with radiculopathy Activity: As commented below Non-emergency contact: Primary Care Provider Call non-emergency contact if: you have any medication questions Follow-up/Referrals: German Aguirre MD [Primary Care Provider] - Diet: Regular Addtl Attending Provider Instructions: ACTIVITY RECOMMENDATIONS: SELF CARE INSTRUCTIONS AFTER THORACIC/LUMBAR FUSIONS 1. You may walk to your tolerance. It is good exercise for your legs and back. Expect some back and intermittent leg aches and pains. 2. You may perform "counter-top" level activities (make a sandwich, mynor with a project, etc.). 3. No bending or lifting of more than 10 pounds or back twisting of any nature (roll like a log when turning in bed). 4. You may ride in a car for 20-30 minutes at a time. No driving until after your first visit with your doctor. 5. Frequent changes of position and restricting sitting to 30 minutes at a time will help limit the amount of back spasms and stiffness you may experience. 6. You may discontinue the use of ambulatory aids (cane, crutches, etc.) once your strength and confidence allow. 7. You may clay grinder the shower and let water strike your incision when you arrive home at least once daily. Do not take a tub bath, sit in a hot tub or go into a swimming pool until after your first recheck in the office. 8. You may resume previous diet. SPECIAL CARE INSTRUCTIONS: VERY IMPORTANT TO READ AND REVIEW A. Your surgical incision has been closed with a cosmetic suture under the skin that will dissolve in about 6 weeks. In 14 days, you can use a pair of clean scissors and cut the suture that is left outside of the skin at the ends of your incision. 1. The small skin tapes can be removed 7 days after surgery if they have not fallen off by that point. 2. You may keep the wound open to air as much as possible to promote healing after post-op day number 5 unless told otherwise by your doctor. 3. If you think the wound looks like it is becoming infected (redness or worsening drainage) and/or you are experiencing fever, chill or worsening back pain and muscle spasms, contact the office so that we may evaluate you as soon as possible. B. Complications are uncommon, but please contact us if you have any signs or symptoms of: 1. wound infection (fever higher than 102.5 degrees F, redness, separation of wound, drainage, or increasing pain from the incision) 2. blood clots in legs (pain, swelling, redness and warmth in legs) 3. urinary tract infection (fever higher than 102.5 degrees F, burning upon urination or increased frequency of urination) 4. nerve problems (inability to walk on your toes or heels, numbness, loss of bowel or bladder control) 5. any other symptoms that concern you C. Please call the office at if you have any concerns or questions about your operation or recovery. D. No smoking! Smoking drastically decreases the chance of a solid fusion. E. Do not take any anti-inflammatory medications (Indocin, Advil, Motrin, Aspirin, Naprosyn, etc.) as these may inhibit the chance of a solid fusion. Tylenol is okay to take for pain. MANAGING PAIN AFTER SPINAL SURGERY 1. Narcotic medication is intended for short-term use and will be provided for surgical pain. Surgical pain usually lasts for a period of 4-6 weeks. Narcotic medication includes Percocet, Vicodin, Darvocet, Tylenol #3 or Lortab. 2. Longer-term pain is more appropriately treated with non-narcotic medication such as Tylenol ES. 3. Muscle spasm is not appropriately treated with narcotics. Muscle relaxers such as Soma, Flexeril or Skelaxin can be used along with Tylenol ES. 4. Remember that we all live with some "aches and pains". This is not unusual or uncommon after an injury or as we get older. a. Back pain is expected and may include muscle spasms for 4 to 6 weeks aft er surgery. The pain should gradually improve. If the pain worsens for no apparent reason, please contact the office. b. Intermittent leg pain may also be experienced and should not be concerned about unless it worsens for no apparent reason. If so, please contact the office. 5. We will provide appropriate medication within the normal guidelines of their prescribed use. We will also be very cautious and aware of potential abuse and extended duration of patients' medication needs. a. Pain medications are for your comfort and to assist with sleep and rest so that the tissue can heal. They are not provided in order to return to normal activity and should not be used through the day. To do so or worsening pain at night can result from ongoing tissue damage and development of tolerance to the prescribed medicine. 6. Please allow 2-3 days to process refills. Prescriptions will not be mailed but must be picked up at the office. FOLLOW UP VISIT: Keep your scheduled follow-up appointment. Any questions, please call the office at . Pending Studies at Discharge: No Stand-Alone Forms: My [facility] [employer], Smoking Cessation Medications and DC Order Prescriptions: New tramadol 50 mg tablet 50 mg PO Q6H PRN (Reason: pain, moderate) Qty: 30 0RF oxycodone 5 mg tablet 5 mg PO Q6H PRN (Reason: pain) Qty: 30 0RF Continued escitalopram oxalate [Lexapro] 10 mg Tablet 20 mg PO QAM levothyroxine 137 mcg Tablet 137 mcg PO QAM losartan-hydrochlorothiazide 50-12.5 mg Tablet 1 tab PO QAM Excedrin Migraine 250-250-65 mg Tablet 1 tab PO Q6H PRN (Reason: Migraine Headache) rosuvastatin 20 mg Tablet 20 mg PO QAM furosemide 20 mg Tablet 20 mg PO QAM Discharge Orders: Discharge Order (Routine); Ordered 03/25/24 Ordered By: Rohith Estevez Admission Data Admit Date/Time: 03/23/24 14:14 Attending Provider: Rohith Estevez Admit Provider: Rohith Estevez Primary Care Provider: German Aguirre Other Providers: Wendi Paulson
== END 2024-03-25 13:11 | disposition home or self-care (01) | DRG 402 ==
LOC: ASU 10:23 → 3E 14:14